=== PATIENT | female | born 1980 | race Caucasian/White ===

== ENCOUNTER → 2017-03-03 | Outpatient (CLI) | payer OTHER ==
[~2017-03-03] MED LIST: CLOP1TAB15 PO; DIGE1CAP7 PO; MULT-506 PO; OMEG10007 PO
[2017-03-03 12:21] LABS: BASO % 0.6 %; BASO ABS # 0.04 K/uL (0-0.2); COMPLETE YES; EOS % 0.9 %; HEMATOCRIT 40.1 % (37-47); IG% 0.1 %; LYMPH % 25.1 %; MEAN CELL VOLUME 91.1 fL (80-100); MEAN CORPUSCULAR HEMOGLOBIN 29.8 pg (25-34); MEAN CORPUSCULAR HGB CONC 32.7 g/dl (32-36); MEAN PLATELET VOLUME 10.2 fL (7.4-10.4); MONO % 6.4 %; NEUT % 66.9 %; PLATELET COUNT 303 K/uL (130-400); WHITE BLOOD COUNT 6.77 K/uL (4.8-10.8)
[2017-03-03 12:46] LABS: CHOLESTEROL/HDL RATIO 2.9
[2017-03-03 14:13] LABS: GLUCOSE,2HR PP 98 mg/dl (70-140)
[2017-03-03 15:12] LABS: GTGD 75 Grams
[2017-03-04 12:19] LABS: INSULIN FASTING 5.2; INSULIN SPEC 2 38.1
== END | disposition home or self-care (01) ==
LOC: C.LAB 08:59
DX: E16.2 Hypoglycemia, unspecified (principal); Z13.89 Encounter for screening for other disorder

== ENCOUNTER 2019-07-12 11:08 | Inpatient (IN) ==
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
[2019-07-12] MEDS ORDERED: HYDROmorphone INJ 0.5 MG/0.5 ML SYR IV PRN (12:28)
[2019-07-12] MEDS ORDERED: PROMETHAZINE HCL 12.5 MG in SODIUM CHLORIDE 0.9% 50 ML IV PRN (12:28)
[2019-07-12] MEDS ORDERED: IBUPROFEN 600 MG TAB PO PRN (12:28)
[2019-07-12] MEDS ORDERED: PROMETHAZINE HCL 25 MG in SODIUM CHLORIDE 0.9% 50 ML IV PRN (12:28)
[2019-07-12] MEDS ORDERED: ACETAMINOPHEN 325 MG TAB PO PRN (12:28)
[2019-07-12] MEDS ORDERED: ONDANSETRON INJ 2 MG/ML 2 ML VIAL IV PRN (12:28)
[2019-07-12 12:34] LABS: Basophils # (auto) 0.07 K/uL (0-0.2); Basophils % (auto) 0.9 %; Eosinophils # (auto) 0.08 K/uL (0-0.5); Hematocrit (blood only) 38.2 % (37-47); Immature Granulocytes # (auto) 0.02 K/uL (0.00-0.02); Immature Granulocytes % (auto) 0.3 %; Lymphocytes # (auto) 1.81 K/uL (1.2-3.4); Lymphocytes % (auto) 23.6 %; Mean Platelet Volume 9.5 fL (7.4-10.4); Monocytes # (auto) 0.52 K/uL (0.11-0.59); Monocytes % (auto) 6.8 %; Neutrophils # (auto) 5.18 K/uL (1.4-6.5); Neutrophils % (auto) 67.4 %; Platelet Count 405 K/uL (130-400); RDW Coefficient of Variation 12.6 % (11.5-14.5); RDW Standard Deviation 42.1 fL (36.4-46.3); White Blood Count 7.68 K/uL (4.8-10.8)
[2019-07-12 12:56] LABS: Albumin Level 3.9 gm/dl (3.4-5.0); BUN Creatinine Ratio 15.9 (10-20); C Reactive Protein 1.49 mg/dl (0-0.29); Calcium 9.4 mg/dl (8.5-10.1); Creatinine Clr Calc Pharmacy 90.1 ml/min; Est GFR (African American) 89.2; Potassium 3.9 mmol/L (3.5-5.1)
[2019-07-12 12:59] LABS: Albumin Globulin Ratio 0.8 (0.9-2); Bilirubin,Total 0.2 mg/dl (0.2-1); Globulin 4.7 gm/dl (2.5-4.0); Total Protein 8.6 gm/dl (6.4-8.2)
[2019-07-12] MEDS ORDERED: IOVERSOL 100ml IV PRN (13:14)
[2019-07-12] MEDS ORDERED: CLINDAMYCIN 600 MG in DEXTROSE 5% 50 ML IV ONE (13:30)
[2019-07-12] MEDS ORDERED: CIPROFLOXACIN / D5W 400 MG/200 ML BAG IV ONE (13:30)
--- NOTE | 2019-07-12 13:47 | CT Scan Report ---
CT SCAN OF THE PELVIS WITH IV CONTRAST CLINICAL HISTORY: Right groin abscess. COMPARISON STUDY: Pelvic CT dated 03/29/2013. TECHNIQUE: CT scan of the pelvis is performed from the pelvic inlet to the proximal femora following the IV administration of 93 cc of Optiray 320. Images are reviewed in the axial, sagittal, and leigh l planes. IV contrast was administered without complication. A dose lowering technique was utilized a dhering to the principles of ALARA. CT DOSE: 639.63 mGy.cm FINDINGS: The bladder, uterus, and adnexa are normal as imaged. There are bilateral ovarian follicles. No free fluid is seen in the cul-de-sac. A prominent right external iliac chain node seen on image #154 measu res 11 mm in short axis. This is likely on a reactive basis. The visualized loops of small bowel and colon are normal in caliber. A normal appendix is identified. The iliac vessels are patent. There is subcutaneous soft tissue infiltration and trace fluid identified in the medial right upper t high superficial to the gracilis muscle. A tiny focus of subcutaneous gas is seen on image #270. The appearance is typical for cellulitis. No organized fluid collection is seen to indicate abscess. The bony pelvis is intact. No lytic or blastic lesion is seen. Mild degenerative sclerosis is noted i n the sacroiliac joints. The regional musculature is normal and symmetric. IMPRESSION: 1. There is infiltration and inflammatory stranding identified within the subcutaneous soft tissues i n the medial right upper thigh superficial to the gracilis muscle. The appearance is typical for cell ulitis. 2. No organized/drainable fluid collection is identified. 3. Pelvic viscera is normal as imaged. ACT 112: Negative or not required by law. Electronically signed by: Aj Neumann M.D. 07/12/2019 1:46 PM
[2019-07-12] MEDS ORDERED: SODIUM CHLORIDE 0.9% 1000ML 1,000 ML IV SCH (14:00)
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
--- NOTE | 2019-07-12 16:55 | Emergency Department Note ---
History of Present Illness General Chief complaint: Referred by Doctor Stated complaint: REFERRED BY DOC Source: patient Mode of arrival: ambulatory Limitations: no limitations History of Present Illness Provider Complaint: + abscess/boil and + lesion Onset (ago): 1 week(s) Tetanus up to date: yes Location: + RLE (groin) Severity: moderate Maximum Pain Intensity: 5 Current Pain Intensity: 5 Quality: + aching, + sharp and + constant Pain Consistency: + constant Relieved By: + immobilization Exacerbated By: + palpation and + movement Associated symptoms: + chills, + malaise and + myalgias Treatments prior to arrival: + antibiotic and + other (I&D) HPI narrative: This 38-year-old female patient presents emergency department today, ambulatory, as a referral from her PCP complaining of an abscess in the right groin. The patient states 9 days ago, she was getting into an ambulance when she bumped her right groin on the seatbelt. This caused what she believed to be a hematoma with some ecchymosis and redness initially. By Thursday, she noticed increased redness and induration in the area. She was then seen here in the ED and started on Keflex. She noted ongoing fevers, chills, myalgias, and was seen as an outpatient by her PCP on . At this time, she was started on IV Rocephin through [facility] as an outpatient. The patient states she was also prescribed Bactrim, which she had not allergic reaction to. On the , she returned back to the emergency department due to increased redness, pain, and abscess. The lesion was incised and drained and cultured at that time. She indicates that the swelling was extending to the right labia as well as up into the groin. She was switched from the Keflex to Cipro and clindamycin. She has noted improvement in the fevers, redness, but worsening induration and occasional pain. She followed up with her PCP again today and the packing was removed. She was referred back to the emergency department for general surgery evaluation due to the ongoing induration and symptoms. The patient states there has been no further purulent discharge. She denies any urinary symptoms including hematuria, pyuria, dysuria, urinary frequency, urinary hesitancy. She denies any abnormal vaginal discharge or bleeding. There is no abdominal pain, leg pain, weakness, numbness, or tingling. Home Medications Home Medications Medication Instructions Recorded Confirmed Type clopidogrel [Plavix] 75 mg PO QAM 04/15/18 07/12/19 History digestive enzymes 1 tab PO DAILY PRN 04/15/18 07/12/19 History ketorolac 15 mg PO DIRECTED PRN 04/15/18 07/12/19 History multivitamin 1 tab PO QAM 04/15/18 07/12/19 History omega 5-gwu-[id number]-fish oil [Fish Oil] 1,000 mg PO DAILY 04/15/18 07/12/19 History aspirin 325 mg PO UD PRN 09/16/18 07/12/19 History ibuprofen 200 mg PO Q6H PRN 09/16/18 07/12/19 History norethindrone (contraceptive) 0.35 mg PO DAILY 07/05/19 07/12/19 History [Alice] ciprofloxacin HCl [Cipro] 500 mg PO Q12H #20 tab 07/10/19 07/12/19 Rx clindamycin HCl 300 mg PO Q6H 10 Days #40 cap 07/10/19 07/12/19 Rx Allergies Allergy/AdvReac Type Severity Reaction Status Date / Time Penicillins Allergy Severe SHORTNESS Verified 07/12/19 13:30 OF BREATH Sulfa (Sulfonamide Allergy Severe ANAPHYLACTIC Verified 07/12/19 13:30 Antibiotics) REACTION morphine Allergy Intermediate RASH, PT Verified 07/12/19 13:30 HAS TAKEN DILAUDID IN PAST WITH NO RXN sulfamethoxazole Allergy Rash Unverified 07/12/19 13:30 [From Bactrim] trimethoprim [From Bactrim] Allergy Rash Unverified 07/12/19 13:30 hydroxychloroquine AdvReac Severe CHANGE IN Verified 07/12/19 13:30 [From Plaquenil] MENTAL STATUS, NEURO COMPLICATIONS DETERGENTS Allergy Unknown TIDE Uncoded 07/12/19 13:30 Past Med/Surg History Medical History Cellulitis (Acute) Costochondritis (Acute) Factor 5 Leiden mutation, heterozygous (Chronic) History of multiple miscarriages Lupus (Chronic) Ovarian cancer Family History (Updated 07/12/19 @ 15:18 by Justine Guerra DO) Other No pertinent family history Stroke Social History Preferred Language: Salvadorean Communication Ability: Effective 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: No Beliefs That Will Affect Care: None marital status: Current Living Situation: Family Current Living Situation Comment: family lives with her, children Other Information That Helps Us Care for You: No Feels Safe at Home: Yes Safety Concerns: Feels Safe At This Time Smoking Status: Never smoker Do You Dip or Chew Tobacco: No ; Second Hand Exposure: No ; Tobacco Cessation Education Requested by Patient: No Hx Alcohol Use: No Hx Substance Use: No Review of Systems A total of 10 systems reviewed and were otherwise negative Physical Exam Vital Signs: Vital Signs - 24 hr 07/12/19 11:11 Temperature 36.6 C Temperature Source Oral Pulse Rate 93 H Respiratory Rate 18 Respiratory Effort / Characteristics Non-Labored Sponta neous Respiratory Depth Normal Blood Pressure 127/86 Blood Pressure Jacqui n 99 Blood Pressure Pos ition Sitting Pulse Oximetry 96 Oxygen Delivery Me thod Room Air Sepsis Recent Feve r Within 48 Hours Yes Sepsis Action Take n by Nursing No Action Required Physical Exam: VITALS: Vitals are noted on the nurse's note and reviewed by myself. Vital signs stable. GENERAL: This is a 38-year-old white female, in no acute distress, nondiaphoretic, well-developed well-nourished. SKIN: Indurated area in the right inguinal crease which extends toward the genitals. There is skin sloughing, but no significant surrounding erythema. No fluctuance. Significant tenderness to palpation of the area. The skin was without rashes, erythema, edema, or bruising. There is no tenting of the skin. Capillary refill less than 2 seconds. HEAD: Normocephalic atraumatic. NECK: Supple without nuchal rigidity. No lymphadenopathy. HEART: Regular rate and rhythm without murmurs gallops or rubs. LUNGS: Clear to auscultation bilaterally without wheezes, rales or rhonchi. No dullness to percussion. No retractions or accessory muscle use. ABDOMEN: Positive bowel sounds x 4. Normal tympanic percussion. Soft, nontender, without masses or organomegaly. Cloud sign negative. No guarding or rebound tenderness. MUSCULOSKELETAL: No muscle atrophy, erythema, or edema noted. Full range of motion without joint tenderness in all extremities. No tenderness to palpation. Normal gait. Strength 5/5 throughout. NEURO: Patient was alert and oriented to person place and time. No focal neurological deficits. Course Course The patient was seen and evaluated as above. I consulted with Dr. Scanlon, general surgeon on-call, immediately after evaluating the patient. IV access obtained, labs drawn. Dr. Scanlon did see and evaluate the patient. He did recommend CT imaging and admission with the likely need for surgical intervention. He recommends admission to the medicine service due to the patient's comorbidities. I discussed the case with the residential case manager. I consulted with Dr. Guerra, [facility] hospitalist on-call. She indicates that this should be a surgical admission with hospitalist consult. I again consulted with Dr. Scanlon and advised him of hospitalist recommendation. Neha nolasco agreed to admit the patient with medicine consult. Imaging performed and reviewed by myself and radiologist as above. Labs reviewed by myself. I discussed the findings with the patient at bedside. She was agreeable to admission at this time. I discussed the case with the ED pharmacist who reviewed micro reports and feels that the patient should be on appropriate antibiotics. Pt. will be admitted to the surgery service. Please see inpatient provider's documentation regarding ongoing management and care of this patient. Administered Medications Sodium Chloride (Nss 1000ml) 1,000 mls @ 50 mls/hr IV .Q20H SMOOTH Stop: 08/11/19 13:59 Last Admin: 07/12/19 14:09 Dose: 50 mls/hr Documented by: [id number] Ibuprofen (Motrin) 600 mg PO Q6H PRN PRN Reason: Pain Stop: 08/11/19 12:27 Last Admin: 07/12/19 14:22 Dose: 600 mg Documented by: [id number] Ioversol (Optiray 320 100ml) 93 ml IV ONCE PRN PRN Reason: Interaction Checking Stop: 07/16/19 13:13 Last Admin: 07/12/19 13:15 Dose: 93 ml Documented by: [id number] Miscellaneous (Order Awaiting Action) 1 ea N/A QS SMOOTH Stop: 08/11/19 15:59 Last Admin: 07/12/19 16:09 Dose: Not Given Documented by: [id number] Discontinued Medications Ciprofloxacin (Cipro) 400 mg in 200 mls @ 100 mls/hr IV ONE ONE Stop: 07/12/19 15:29 Last Infusion: 07/12/19 16:20 Dose: 0 mls/hr Documented by: [id number] Admin: 07/12/19 14:18 Dose: 100 mls/hr Documented by: [id number] Clindamycin Phosphate 600 mg/ (Dextrose) 54 mls @ 100 mls/hr IV ONE ONE Stop: 07/12/19 14:02 Last Infusion: 07/12/19 14:17 Dose: 0 mls/hr Documented by: [id number] Admin: 07/12/19 13:44 Dose: 100 mls/hr Documented by: [id number] Medical Decision Making Differential Diagnosis + abscess of skin or subcutaneous tissue, + viral exanthem, + dermatophytosis, + urticaria, + herpes zoster, + allergic reaction to drug, + cellulitis, + eczema, + insect bites, + impetigo, + contact dermatitis, + cellulitis, + necrotizing fasciitis, + foreign body, + dermatitis and + drug eruption Home Medications Current Medication List: was personally reviewed by me Laboratory Data Attestation: I reviewed the patient's lab results. No leukocytosis, anemia, thrombocytopenia. Renal, hepatic function, and electrolytes without significant abnormality. Inflammatory markers elevated. Result diagrams: 07/12/19 12:11 07/12/19 12:11 Lab Results 07/12/19 07/12/19 07/12/19 Range/Units 12:11 12:11 12:11 WBC 7.68 (4.8-10.8) K/uL RBC 4.20 (4.2-5.4) M/uL Hgb 13.0 (12.0-16.0) g/dL Hct 38.2 (37-47) % MCV 91.0 (80-100) fL MCH 31.0 (25-34) pg MCHC 34.0 (32-36) g/dL RDW Std Deviation 42.1 (36.4-46.3) fL RDW Coeff of Richelle 12.6 (11.5-14.5) % Plt Count 405 H (130-400) K/uL MPV 9.5 (7.4-10.4) fL Immature Gran % (Auto) 0.3 % Neut % (Auto) 67.4 % Lymph % (Auto) 23.6 % Douglas % (Auto) 6.8 % Eos % (Auto) 1.0 % Baso % (Auto) 0.9 % Immature Gran # (Auto) 0.02 (0.00-0.02) K/uL Neut # (Auto) 5.18 (1.4-6.5) K/uL Lymph # (Auto) 1.81 (1.2-3.4) K/uL Douglas # (Auto) 0.52 (0.11-0.59) K/uL Eos # (Auto) 0.08 (0-0.5) K/uL Baso # (Auto) 0.07 (0-0.2) K/uL ESR 46 H (0-21) mm/hr Sodium 137 (136-145) mmol/L Potassium 3.9 (3.5-5.1) mmol/L Chloride 105 (98-107) mmol/L Carbon Dioxide 28 (21-32) mmol/L Anion Gap 5.0 (3-11) BUN 15 (7-18) mg/dl Creatinine 0.94 (0.6-1.2) mg/dl Est Cr Clr Drug Dosing 90.1 ml/min Est GFR ( Amer) 89.2 Est GFR (Non-Af Amer) 77.0 BUN/Creatinine Ratio 15.9 (10-20) Glucose 91 (70-99) mg/dl Lactate (0.4-2.0) mmol/L Calcium 9.4 (8.5-10.1) mg/dl Total Bilirubin 0.2 (0.2-1) mg/dl AST 10 L (15-37) U/L ALT 13 (12-78) U/L Alkaline Phosphatase 44 L (45-117) U/L C-Reactive Protein 1.49 H (0-0.29) mg/dl Total Protein 8.6 H (6.4-8.2) gm/dl Albumin 3.9 (3.4-5.0) gm/dl Globulin 4.7 H (2.5-4.0) gm/dl Albumin/Globulin Ratio 0.8 L (0.9-2) 07/12/19 Range/Units 12:11 WBC (4.8-10.8) K/uL RBC (4.2-5.4) M/uL Hgb (12.0-16.0) g/dL Hct (37-47) % MCV (80-100) fL MCH (25-34) pg MCHC (32-36) g/dL RDW Std Deviation (36.4-46.3) fL RDW Coeff of Richelle (11.5-14.5) % Plt Count (130-400) K/uL MPV (7.4-10.4) fL Immature Gran % (Auto) % Neut % (Auto) % Lymph % (Auto) % Douglas % (Auto) % Eos % (Auto) % Baso % (Auto) % Immature Gran # (Auto) (0.00-0.02) K/uL Neut # (Auto) (1.4-6.5) K/uL Lymph # (Auto) (1.2-3.4) K/uL Douglas # (Auto) (0.11-0.59) K/uL Eos # (Auto) (0-0.5) K/uL Baso # (Auto) (0-0.2) K/uL ESR (0-21) mm/hr Sodium (136-145) mmol/L Potassium (3.5-5.1) mmol/L Chloride (98-107) mmol/L Carbon Dioxide (21-32) mmol/L Anion Gap (3-11) BUN (7-18) mg/dl Creatinine (0.6-1.2) mg/dl Est Cr Clr Drug Dosing ml/min Est GFR ( Amer) Est GFR (Non-Af Amer) BUN/Creatinine Ratio (10-20) Glucose (70-99) mg/dl Lactate 0.8 (0.4-2.0) mmol/L Calcium (8.5-10.1) mg/dl Total Bilirubin (0.2-1) mg/dl AST (15-37) U/L ALT (12-78) U/L Alkaline Phosphatase (45-117) U/L C-Reactive Protein (0-0.29) mg/dl Total Protein (6.4-8.2) gm/dl Albumin (3.4-5.0) gm/dl Globulin (2.5-4.0) gm/dl Albumin/Globulin Ratio (0.9-2) Imaging Data Radiologist's Impression: CT SCAN OF THE PELVIS WITH IV CONTRAST CLINICAL HISTORY: Right groin abscess. COMPARISON STUDY: Pelvic CT dated 03/29/2013. TECHNIQUE: CT scan of the pelvis is performed from the pelvic inlet to the proximal femora following the IV administration of 93 cc of Optiray 320. Images are reviewed in the axial, sagittal, and coronal planes. IV contrast was administered without complication. A dose lowering technique was utilized adhering to the principles of ALARA. CT DOSE: 639.63 mGy.cm FINDINGS: The bladder, uterus, and adnexa are normal as imaged. There are bilateral ovarian follicles. No free fluid is seen in the cul-de-sac. A prominent right external iliac chain node seen on image #154 measures 11 mm in short axis. This is likely on a reactive basis. The visualized loops of small bowel and colon are normal in caliber. A normal appendix is identified. The iliac vessels are patent. There is subcutaneous soft tissue infiltration and trace fluid identified in the medial right upper thigh superficial to the gracilis muscle. A tiny focus of subcutaneous gas is seen on image #270. The appearance is typical for cellulitis. No organized fluid collection is seen to indicate abscess. The bony pelvis is intact. No lytic or blastic lesion is seen. Mild degenerative sclerosis is noted in the sacroiliac joints. The regional musculature is normal and symmetric. IMPRESSION: 1. There is infiltration and inflammatory stranding identified within the subcutaneous soft tissues in the medial right upper thigh superficial to the gracilis muscle. The appearance is typical for cellulitis. 2. No organized/drainable fluid collection is identified. 3. Pelvic viscera is normal as imaged. ACT 112: Negative or not required by law. Electronically signed by: Aj Neumann M.D. 07/12/2019 1:46 PM Blood Pressure Blood Pressure Findings: Normal blood pressure MDM Narrative This 38-year-old female patient presents emergency department today for evaluation of right inguinal abscess. This occurred after injury. The abscess has been I&D and the patient has been on 5 different antibiotics over the past week. She did start to see some improvement since initiating Clindamycin and Cipro. She was sent to the ED for general surgery consult. This was placed and completed in the ED. The surgeon did recommend admission for monitoring and indicated that the patient will likely need to go to the operating room to have the area cleaned out, as he is highly suspicious for necrotic tissue and potential microabscesses in the area causing the induration and pain. The patient is initially hesitant for admission or surgery. She did ultimately agree to admission, but is refusing surgery at this time. She would like to consult with ID and continue the current antibiotics for possible ongoing improvement. The patient was admitted to the general surgery service. Please see inpatient team dictations regarding ongoing management, care, and final disposition of this patient. The chart was completed utilizing [employer] Speech voice recognition software. Grammatical errors, random word insertions, pronoun errors, and incomplete sentences are an occasional consequence of this system due to software limitat ions, ambient noise, and hardware issues. Any formal questions or concerns about the content, text, or information contained within the body of this dictation should be directly addressed to the provider for clarification. Impression & Plan Abscess or cellulitis of groin Discharge Plan Visit Data *Final* Discharge Date/Time: 07/12/19 14:31 Chief Complaint: Referred by Doctor Stated Complaint: REFERRED BY DOC ED Provider: Mark Prescott ED Midlevel Provider: Richelle Mooney Discharge Problem: Abscess or cellulitis of groin Patient Disposition: Admitted As Inpatient Discharge Instructions Interventions: ED Discharge Assessment Last Done: 07/12/19 14:31
[2019-07-12] MEDS: LACTOBACILLUS ACIDOPHILUS (FLORANEX) TAB PO SCH ×3 (17:40→21:04)
[2019-07-12] MEDS: CLINDAMYCIN 600 MG in DEXTROSE 5% 50 ML IV SCH (21:04)
[2019-07-12] MEDS: CIPROFLOXACIN / D5W 400 MG/200 ML BAG IV SCH (23:28)
[2019-07-13] MEDS: CLINDAMYCIN 600 MG in DEXTROSE 5% 50 ML IV SCH ×3 (05:55→21:41)
--- NOTE | 2019-07-13 06:24 | Surgery Progress Note ---
Date of Service July 13, 2019 Assessment & Plan (1) Cellulitis: Continue IV antibiotics Will adjust as per infectious disease and her sensitivities I think she should take at least a week off work Limit her activities Possible discharge in 1 to 2 days We will need to decide on p.o. versus IV antibiotics Subjective Patient is awake and alert she is afebrileHer vital signs are stable Physical Exam Constitutional: well developed and well nourished; no acute distress Respiratory: normal respiratory effort; no respiratory distress Cardiovascular: Rate/Rhythm: regular rhythm Skin: Erythema and induration Right mid proximal thigh area PG Care Time/CCT Total # of Minutes Spent Total Time Spent with Patient: Total time spent is greater than 50% in coordination of care (as documented) at patient's floor/unit and/or counseling patient: Coding Level of Care Code 59473 Subseq Hosp Care Lvl 3 Diagnoses Cellulitis L03.818 Site of cellulitis: other site (1) Cellulitis Site of cellulitis: other site Qualified Code(s): L03.818 - Cellulitis of other sites
[2019-07-13] MEDS: LACTOBACILLUS ACIDOPHILUS (FLORANEX) TAB PO SCH ×5 (08:35→20:16)
[2019-07-13] MEDS ORDERED: CLOPIDOGREL BISULFATE 75 MG TAB PO SCH (09:00)
--- NOTE | 2019-07-13 09:36 | Hospitalist Progress Note ---
Date of Service July 13, 2019 Assessment & Plan (1) Abscess or cellulitis of groin: * Primary Dr. Scanlon. Initially admitted for likely I&D, although CT without evidence of drainable abscess at this time. 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 Stable. Previously was on Plaquenil and developed issues -- currently on ASA prn, Plavix 75mg daily * Resumed this evening as patient not going to OR (3) Factor 5 Leiden mutation, heterozygous: * Aspirin/plavix on hold for possible OR -- resumed as patient no longer needing to go to OR (4) DVT prophylaxis: * As per primary -- ASA, plavix resumed Dispo: likely discharge tomorrow with Clinda PO TID x 3 weeks Admission and Anticipated Discharge Date Admission Date: July 12, 2019 Supervising Physician Co-Signing Physician Notes Attending Attestation - Chart reviewed, care plan d/w JOSE Blunt. I agree w/ the greenwood components of her consult documentation. Darell Gusman MD Subjective Patient evaluated at bedside with daughter present. Feels much better after receiving IV abx. Had not seen ID yet this morning, but plan for continuing IV clinda/cipro for now. Discussed complicated course over the past week while dealing with this infection/abscess and multiple antibiotics including keflex, IV Rocephin multiple times at the office, batrim (with resulting reaction) and I&D for copious purulent material. Had worsening pain/fever/chills and came in for possible OR I&D with Dr. Scanlon. If she is to continue IV abx, discussed obtaining US guided peripheral IV. Also, questions regarding topical dressings and/or utilizing friend's hyperbaric oxygen chamber for quicker wound healing. Discussed continuing IV antibiotics overnight upon revisiting room this evening. Rec from ID to continue Cipro TID x 3 weeks. Possible discharge in AM. Denies any chest pain, shortness of breath, abdominal pain, n/v. Review of Systems Review of Systems: All systems reviewed & are unremarkable except as noted in HPI & below Physical Exam Constitutional: WD/WN, vitals as above no acute distress Respiratory: normal respiratory effort, lungs clear to auscultation Cardiovascular: RRR, no murmur, no edema Gastrointestinal (Abdomen): normal bowel sounds, soft, nontender, no hepatosplenomegaly Skin: Approx 4-5cm area of induration R groin, inguinal crease. Without erythema. Without expressible drainage. Minimally tender to palpation. Psychiatric: A+Ox3, euthymic affect Results & Data ([facility]) Vital Signs (Past 12 Hours) Vital Signs Temp Pulse Resp BP Pulse Ox 07/13/19 07:30 36.9 C 93 H 16 120/87 97 PG Care Time/CCT Total # of Minutes Spent Total Time Spent with Patient: Total time spent is greater than 50% in coordination of care (as documented) at patient's floor/unit and/or counseling patient: Coding Level of Care Code 83243 Subseq Hosp Care Lvl 1 Diagnoses Abscess or cellulitis of groin Lupus M32.9 Factor 5 Leiden mutation, heterozygous D68.51 DVT prophylaxis Z29.9
--- NOTE | 2019-07-13 11:20 | Infectious Disease Consult ---
Date of Consultation July 13, 2019 Assessment & Plan (1) Cellulitis: can continue IV abx for now, would suggest continued po clinda 300mg po tid with food x 3 weeks. warm compress, local wound care. can stop cipro at d/c. ok for d/c from ID standpoint when otherwise stable. continue probiotic. avoid pcn due to allergy. History of Present Illness Attending Physician: Jamar Scanlon MD, FACS pt admitted with worsening right groin/upper thigh wound. had been to ER on 07/05 and 07/09, was on clinda and cipro emperically. worsened on 07/09 - pain, swelling, had bedside I&D and culture grew prevotella, no sensitivities done. continue on abx and states significant improvement after drainage. still weeping at home but improved. pain and swelling better. denies f/c. came to ER yesterday, had ct showing edema, no abscess, had surgery eval, was placed on IV clinda and cipro and was admitted for observation and tentative OR. per patient no OR planned at this time due to improvement. no f/c. wbc 7, creat 0.6, blood cultures negative. no abd pain, no n/v/d. no cp, sob, cough. no pain in leg. taking probiotic at home. asking to go home. Allergies Allergy/AdvReac Type Severity Reaction Status Date / Time Penicillins Allergy Severe SHORTNESS Verified 07/12/19 13:30 OF BREATH Sulfa (Sulfonamide Allergy Severe ANAPHYLACTIC Verified 07/12/19 13:30 Antibiotics) REACTION morphine Allergy Intermediate RASH, PT Verified 07/12/19 13:30 HAS TAKEN DILAUDID IN PAST WITH NO RXN sulfamethoxazole Allergy Rash Unverified 07/12/19 13:30 [From Bactrim] trimethoprim [From Bactrim] Allergy Rash Unverified 07/12/19 13:30 hydroxychloroquine AdvReac Severe CHANGE IN Verified 07/12/19 13:30 [From Plaquenil] MENTAL STATUS, NEURO COMPLICATIONS DETERGENTS Allergy Unknown TIDE Uncoded 07/12/19 13:30 Home Medications Home Medications Medication Instructions Recorded Confirmed Type clopidogrel [Plavix] 75 mg PO QAM 04/15/18 07/12/19 History digestive enzymes 1 tab PO DAILY PRN 04/15/18 07/12/19 History ketorolac 15 mg PO DIRECTED PRN 04/15/18 07/12/19 History multivitamin 1 tab PO QAM 04/15/18 07/12/19 History omega 4-zcp-zgc-fish oil [Fish Oil] 1,000 mg PO DAILY 04/15/18 07/12/19 History aspirin 325 mg PO UD PRN 09/16/18 07/12/19 History ibuprofen 200 mg PO Q6H PRN 09/16/18 07/12/19 History norethindrone (contraceptive) 0.35 mg PO DAILY 07/05/19 07/12/19 History [Alice] ciprofloxacin HCl [Cipro] 500 mg PO Q12H #20 tab 07/10/19 07/12/19 Rx clindamycin HCl 300 mg PO Q6H 10 Days #40 cap 07/10/19 07/12/19 Rx Patient History Medical History Cellulitis (Acute) Costochondritis (Acute) Factor 5 Leiden mutation, heterozygous (Chronic) History of multiple miscarriages Lupus (Chronic) Ovarian cancer Family History Other No pertinent family history Stroke Social History Preferred Language: Estonian Communication Ability: Effective Tmr Teacher Required: No Beliefs That Will Affect Care: None marital status: Current Living Situation: Family Current Living Situation Comment: family lives with her, children Other Information That Helps Us Care for You: No Feels Safe at Home: Yes Safety Concerns: Feels Safe At This Time Smoking Status: Never smoker Do You Dip or Chew Tobacco: No ; Second Hand Exposure: No ; Tobacco Cessation Education Requested by Patient: No Hx Alcohol Use: No Hx Substance Use: No Review of Systems Review of Systems: All systems reviewed & are unremarkable except as noted in HPI & below Physical Exam Constitutional: WD/WN, vitals as above Eyes: PERRL, conjunctivae normal, anicteric sclerae ENMT: external ear and nose normal, oropharynx normal Neck: normal visual inspection Respiratory: normal respiratory effort, lungs clear to auscultation Cardiovascular: RRR, no murmur, no edema Gastrointestinal (Abdomen): normal bowel sounds, soft, nontender, no hepatosplenomegaly Musculoskeletal: no cyanosis or clubbing, extremities motor strength 5/5 Skin: no rashes, warm and dry + wound (induration, no drainage, no warmth min erythema, non tender) Psychiatric: A+Ox3, euthymic affect Results & Data ([facility]) Vital Signs (Past 12 Hours) Vital Signs Temp Pulse Resp BP Pulse Ox 07/13/19 07:30 36.9 C 93 H 16 120/87 97 PG Care Time/CCT Total # of Minutes Spent Total Time Spent with Patient: Total time spent is greater than 50% in coordination of care (as documented) at patient's floor/unit and/or counseling patient: Coding Level of Care Code 11506 Inpt Consult Level 4 Diagnoses Cellulitis L03.818 Site of cellulitis: other site (1) Cellulitis Site of cellulitis: other site Qualified Code(s): L03.818 - Cellulitis of other sites
[2019-07-13] MEDS: CIPROFLOXACIN / D5W 400 MG/200 ML BAG IV SCH (11:34)
[2019-07-13] MEDS ORDERED: ASPIRIN 325 MG ECTAB PO PRN (17:34)
[2019-07-13] MEDS ORDERED: CLOPIDOGREL BISULFATE 75 MG TAB PO ONE (17:36)
[2019-07-14] MEDS: CIPROFLOXACIN / D5W 400 MG/200 ML BAG IV SCH (00:06)
[2019-07-14] MEDS: CLINDAMYCIN 600 MG in DEXTROSE 5% 50 ML IV SCH (05:26)
[2019-07-14 05:41] LABS: Basophils # (auto) 0.05 K/uL (0-0.2); Basophils % (auto) 0.6 %; Eosinophils # (auto) 0.18 K/uL (0-0.5); Eosinophils % (auto) 2.1 %; Hematocrit (blood only) 35.2 % (37-47); Hemoglobin 12.1 g/dL (12.0-16.0); Immature Granulocytes # (auto) 0.04 K/uL (0.00-0.02); Immature Granulocytes % (auto) 0.5 %; Lymphocytes # (auto) 2.56 K/uL (1.2-3.4); Lymphocytes % (auto) 30.2 %; Mean Corpuscular Hgb Conc 34.4 g/dL (32-36); Mean Corpuscular Volume 90.3 fL (80-100); Monocytes # (auto) 0.67 K/uL (0.11-0.59); Monocytes % (auto) 7.9 %; Neutrophils # (auto) 4.98 K/uL (1.4-6.5); Neutrophils % (auto) 58.7 %; Platelet Count 389 K/uL (130-400); RDW Coefficient of Variation 12.6 % (11.5-14.5); RDW Standard Deviation 41.7 fL (36.4-46.3); White Blood Count 8.48 K/uL (4.8-10.8)
[2019-07-14] MEDS: LACTOBACILLUS ACIDOPHILUS (FLORANEX) TAB PO SCH (07:19)
--- NOTE | 2019-07-14 07:30 | Discharge Summary ---
Date of Service July 14, 2019 Admission HPI Per Admitting Provider see dictation Admission Exam Per Admitting Provider see dictation Discharge Data Allergies Allergy/AdvReac Type Severity Reaction Status Date / Time Penicillins Allergy Severe SHORTNESS Verified 07/12/19 13:30 OF BREATH Sulfa (Sulfonamide Allergy Severe ANAPHYLACTIC Verified 07/12/19 13:30 Antibiotics) REACTION morphine Allergy Intermediate RASH, PT Verified 07/12/19 13:30 HAS TAKEN DILAUDID IN PAST WITH NO RXN sulfamethoxazole Allergy Rash Unverified 07/12/19 13:30 [From Bactrim] trimethoprim [From Bactrim] Allergy Rash Unverified 07/12/19 13:30 hydroxychloroquine AdvReac Severe CHANGE IN Verified 07/12/19 13:30 [From Plaquenil] MENTAL STATUS, NEURO COMPLICATIONS DETERGENTS Allergy Unknown TIDE Uncoded 07/12/19 13:30 Consultations 07/12/19 11:36 Consult General Surgery Stat 07/12/19 12:21 Consult Hospitalist Stat 07/12/19 12:22 ED Decision to Admit Stat 07/12/19 12:27 Consult Hospitalist Routine Consult Infectious Diseases Routine Ordered Studies 07/12/19 12:00 CT pelvis w/IV con only Stat Discharge Plan Discharge Items Patient Disposition: Home - Self-Care Reason For Visit: SOFT TISSUE INFECTION Discharge Diagnosis: cellulitis Activity: As commented below Activity Comment: light activity for 1 week Lifting: No more than 25 pounds Bathing Comment: may shower Sexual Activity: When tolerated Exercise Comment: wait 2-3 weeks- depending on progress Driving/Machine Use: No limitations Non-emergency contact: Primary Care Provider and Surgeon Call non-emergency contact if: your pain is not controlled, your temperature is above 101 and your wound has increased drainage Follow-up/Referrals: Jamar Burns Jr, DO [Primary Care Provider] - Diet: Regular Addtl Attending Provider Instructions: SPECIAL CARE INSTRUCTIONS: * Cover incisions and change daily for comfort/drainage. * May use ibuprofen for pain as tolerated. Call your doctor if: * Temperature above 101 degrees * Pain not relieved by pain medicine ordered * There is increased drainage or redness from any incision * You have any unanswered questions or concerns [phone]. FOLLOW UP VISIT: If not already scheduled, please call the office for a follow-up visit. OFFICE PHONE NUMBER: Dr. Scanlon Office for next week- check up Pending Studies at Discharge: No Stand-Alone Forms: My [facility], Smoking Cessation Medications and DC Order Prescriptions: New clindamycin HCl 300 mg capsule 300 mg PO TID 7 Days Qty: 21 RF: 3 Continued aspirin 325 mg Tablet 325 mg PO UD PRN (Reason: Pain) RF: 0 ibuprofen 200 mg Tablet 200 mg PO Q6H PRN (Reason: Pain) RF: 0 multivitamin Tablet 1 tab PO QAM RF: 0 digestive enzymes Tablet 1 tab PO DAILY PRN (Reason: Indigestion) RF: 0 clopidogrel [Plavix] 75 mg Tablet 75 mg PO QAM RF: 0 ketorolac 10 mg Tablet 15 mg PO DIRECTED PRN (Reason: Migraine Headache) RF: 0 omega 6-uqr-pnj-fish oil [Fish Oil] 1,000 mg (120 mg-180 mg) Capsule 1,000 mg PO DAILY RF: 0 norethindrone (contraceptive) [Alice] 0.35 mg tablet 0.35 mg PO DAILY RF: 0 clindamycin HCl 300 mg capsule 300 mg PO Q6H 10 Days Qty: 40 RF: 0 ciprofloxacin HCl [Cipro] 500 mg tablet 500 mg PO Q12H Qty: 20 RF: 0 Discharge Orders: Discharge Order (Routine); Ordered 07/14/19 Ordered By: Jamar Scanlon Admission Data Admit Date/Time: 07/12/19 12:25 Attending Provider: Jamar Scanlon Admit Provider: Jamar Scanlon Primary Care Provider: Jamar Burns Jr Other Providers: Jamar Scanlon ; Justine Guerra Rick D ; Hahn, Lauren ; Carmen Choi ; Darell Gusman Robert R. ; Mark Leon ; Wade Lang ; Brian Flores ; Nay Sams ; Laura Jarquin ; Sandra Waddell ; Tyrell Hinton ; Moriah Velasquez ; Yang Salcedo ; Curtis Sherman ; Charmaine Issa ; Pablo Aguero ; Vanita Macdonald ; Jennifer Taylor ; Magnus Mascorro ; Darell Sanchez ; Anant Hayden ; Katie De Dios ; Oscar Bergeron ; Percy Jerome ; Sonia Moran ; Davon Huerta ; Ke Bailey ; Fredy Shi ; Saqib Frye ; Syeda Smith Supervising Physician Co-Signing Physician Notes see dictated d/c summary Coding Level of Care Code D/C Day Management >30 mins
[2019-07-14] MEDS ORDERED: CLOPIDOGREL BISULFATE 75 MG TAB PO SCH (09:00)
--- NOTE | 2019-07-14 10:13 | Discharge Summary (DS) ---
PRINCIPAL DIAGNOSIS: Cellulitis of the right proximal thigh. HISTORY OF PRESENT ILLNESS: The patient is a 38-year-old female who has been treated over the past 2 weeks with infection of the proximal right thigh requiring drainage on 07/09/2019. She was brought into the hospital and underwent CAT scan, which showed cellulitis with no overt collection and what appeared to be [id number] inflammation consistent with cellulitis. She was placed on IV antibiotics and Dr. Smith of infectious disease was asked to see her. We have decided to place her on oral clindamycin for 3 weeks and we will continue with nonoperative treatment. She has improved even over the last 48-72 hours. We will see her in the surgical clinic next week.
== END 2019-07-14 10:27 | disposition home or self-care (01) | DRG 603 ==
LOC: ED 11:08 → 3W 12:25

== ENCOUNTER 2024-04-07 22:02 | Observation (INO) ==
--- NOTE | 2024-04-07 22:32 | Emergency Department Note ---
Impression & Plan RUQ pain, Postoperative abdominal pain, Right arm weakness, Vertigo, Acute confusion ED Provider Note Name: JACKIE SERRA Age: 43 Sex: Female Arrives Via: Walk-In Informant: Patient, significant other ED Provider: Edward Avendano MD Chief Complaint: Abdominal pain and confusion Impression: As per impressions above Medical Decision Making: Very pleasant 43-year-old female arrives for evaluation of severe postoperative abdominal pain following a cholecystectomy earlier this morning. Associated with severe vertigo, anxiety, nausea and the feeling of heaviness in the right arm and leg. Notes right arm feels a bit weak. She is also having pain into her right shoulder blade as well as anterior shoulder. On arrival vitals are reassuring. She is breathing comfortably with clear lung sounds bilaterally. She has severe tenderness palpation of the right upper quadrant though also diffuse tenderness of the entire abdomen. Neurologically she is 5 out of 5 strength the right arm does seem slightly weaker than left. She furthermore is severely vertiginous. She had surgery this morning this is not a thrombolytic candidate. Patient does have a history of factor V Leiden and has been off her Plavix for the last [address] angiography of the head and neck was emergently done as a stroke alert. Fortunately these are negative thus there is no need for transfer for thrombectomy. Given she is not a TNKase candidate and does not have severe focal deficits I do not feel that neurologic consult immediately is necessary. Given the postoperative abdominal pain patient had a CT abdomen pelvis with IV contrast obtained. Fortunately findings are consistent with postoperative expected. Air tracking over the right lower ribs may account for some of the pain she is having. It may be causing some referred pain to the shoulder as well. Patient is not dyspneic she is not hypoxic nor tachycardic. She does not have any specific chest complaints other than the pain in her right lower chest/right upper quadrant as well as the right shoulder. I think these pains are more likely due to surgery rather than multiple PEs. Would hold off on CT angiography of the chest at this time given already receiving dye load and trialing some IV Toradol for discomfort. Patient is also noting almost the brain fog and feeling like she may be seeing things that are not there. I suspect much of this is secondary to anesthesia earlier today. That said this will need further monitoring for clearance prior to discharge. I do not suspect meningitis. Triage/Nursing Notes reviewed by Me External Chart Review by me: Reviewed operative report from this morning April 07, 2024 which there is no report of surgical complication or. Differential:Benign positional vertigo, dehydration, hypovolemia, anemia, tumor, infection, hypoglycemia, electrolyte abnormalities, cardiac sources, intracerebral event, toxicologic, neurologic, as well as other pathologies. Vital Signs: reviewed and remarkable for no significant abnormalities Interventions: Normal saline bolus 1 L IV, Ativan IV, Dilaudid IV x 2, Toradol IV Labs:ED labs Reviewed by me and remarkable for no significant abnormalities Imaging:CT of the head without contrast as per my informal interpretation reveals no intracranial hemorrhage or mass effect appreciated. Confirmed by radiologist. CT angiography of the head and neck as per radiology no acute concerning findings. CT of the abdomen pelvis as per my informal interpretation. There is subcutaneous air and small amount of air throughout the abdomen consistent with postoperative course. Trace free fluid without evidence of large fluid or bleeding appreciated. No bowel obstruction appreciated though will note mildly dilated bowel. Per radiologist this may represent ileus. EKG:As per my interpretation. Indication strokelike symptoms. Normal sinus rhythm 75 bpm no ectopy no ischemia. QTc of 433. Compared to EKG of December 11, 2022 there is no significant change. Cardiac/Tele Monitoring: Cardiac Monitoring: An Order was placed for continuous cardiac monitoring. The monitor shows a rate of 70 with a normal sinus rhythm. Consults:Discussed with Dr. Gupta who will evaluate patient for further management hospitalization. Plan: Disposition:Hospitalization. Condition: Good History of Present Illness: 43-year-old female arrives to the ER for evaluation of abdominal pain. Patient notes that she had a cholecystectomy this morning and was discharged to home this afternoon. Since getting home she states she has been feeling increasing severe abdominal pain. Radiates to the right shoulder. She also notes that she has been having severe vertiginous symptoms and feels like anytime she closes her eyes or vision starts spinning. This has been associated for the last several hours if not since the operative case with weakness and heaviness of the right arm and leg. States this is similar to previous TIA. Denies any passing out but states she is feeling very lightheaded. She did take meclizine earlier with mild improvement of the spinning. Patient notes that she feels like she is seeing things that should not be there and feels like she is hallucinating. Patient feels her abdomen is somewhat distended. Patient has a history of factor V Leiden is chronically on Plavix however had stopped the Plavix preoperatively for the last 3 days. Denies any headache. Past Medical History:See Below Home Medications:See Below Allergies:See Below Vitals:Blood Pressure: 110/67, Pulse 87, RR 20, T 37.4C, O2 97% on RA Physical Exam: GENERAL: Patient is anxious, unwell, pale appearing and in moderate distress. Diffusely weak having difficulty even sitting up straight. RESPIRATORY: No dyspnea. Clear to auscultation and equal bilaterally. CARDIOVASCULAR: Regular rate and rhythm.No murmur appreciated. GASTROINTESTINAL: Abdomen soft, non-tender, no peritonitis. BACK: No midline tenderness, no CVA tenderness EXTREMITIES: Normal motion all extremities, no cyanosis, no edema. Patient has cap refill bilateral hands with good distal pulses bilaterally. There is no bruising or swelling of the proximal or distal arms. NEUROLOGIC: Awake alert oriented. She does have some slow response with the right arm but 5 out of 5 strength. Similar in the right leg. SKIN: No rash, no jaundice, no diaphoresis. PSYCH: Appropriate GCS: 15 ED Course: Times/Reassessments: Multiple repeat evaluations of patient throughout the stay. Gradually improving anxiety and pain though still feeling quite foggy and uncomfortable. Agreeable to hospitalization Edward Avendano MD Past Med/Surg History Problem List (Updated 04/08/24 @ 00:49 by Edward Avendano MD) Acute confusion (Acute) Vertigo (Acute) Right arm weakness (Acute) Postoperative abdominal pain (Acute) Encounter for pre-operative examination Acute cholecystitis due to biliary calculus RUQ pain (Acute) Abdominal pain (Acute) Iron deficiency Fatty liver GERD (gastroesophageal reflux disease) History of systemic lupus erythematosus Tinnitus of right ear Factor 5 Leiden mutation, heterozygous (Chronic) Hemiplegic migraine Medical History (Updated 04/08/24 @ 00:49 by Edward Avendano MD) Iron deficiency anemia follows with Hematology History of DVT (deep vein thrombosis) LLE 6mos post (per PCP note) Fatty liver Rheumatoid arthritis Dental bridge present per pt is removable Cracked tooth back right wisdom tooth Factor 5 Leiden mutation, heterozygous on plavix Color blindness Hearing loss in right ear History of TIA (transient ischemic attack) 'multiple TIA-like events' per PCP. Per pt, 'last one was roughly 1 yr ago (2022)' Migraine Lupus SLE History of Raynaud's syndrome Costochondritis History of multiple miscarriages Surgical History (Updated 04/07/24 @ 10:17 by Kelly Betancourt, RN) Hx laparoscopic cholecystectomy (04/07/24) Robotic Assisted Laparoscopic Cholecystectomy(Not Applicable) - Mily Crooks DO History of dilatation and curettage Family History Grandfather Diabetes Heart disease Hypertension Grandmother Stroke Other Allergies Asthma No family history of adverse response to anesthesia No pertinent family history Denies family history of Ovarian cancer Prostate cancer Myocardial infarction Breast cancer Colorectal cancer Social History Smoking Status: Never smoker Second Hand Exposure: No; Do You Dip or Chew Tobacco: No; Hx Alcohol Use: No Hx Substance Use: No Preferred Language: Danish Communication Ability: Effective Visual Impairment: Partially Limited Hearing Ability: Normal Horse Race St[employer] Required: No Beliefs That Will Affect Care: None marital status: Current Living Situation: Family Current Living Situation Comment: family lives with her, children current occupational status: employed and student 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 How many Children do You have: 3 Feels Safe at Home: Yes Diet: gluten free and lactose free caffeine: No during the past year weight has: decreased > 10 lbs Dental Care, Regularly: Yes Physical Activity Frequency: Daily Seatbelt Use: always Sunscreen Use: Yes Assistive Devices: Glasses and Other Allergies Allergies Allergy/AdvReac Type Severity Reaction Status Date / Time Penicillins Allergy Severe SHORTNESS Verified 04/07/24 07:04 OF BREATH Sulfa (Sulfonamide Allergy Severe ANAPHYLACTIC Verified 04/07/24 07:04 Antibiotics) REACTION morphine Allergy Intermediate RASH, PT Verified 04/07/24 07:04 HAS TAKEN DILAUDID IN PAST WITH NO RXN sulfamethoxazole Allergy Mild Rash Verified 04/07/24 07:04 [From Bactrim] trimethoprim [From Bactrim] Allergy Mild Rash Verified 04/07/24 07:04 hydroxychloroquine AdvReac Severe CHANGE IN Verified 04/07/24 07:04 [From Plaquenil] MENTAL STATUS, NEURO COMPLICATIONS DETERGENTS Allergy Unknown TIDE Uncoded 04/07/24 07:04 Home Meds Home Medications Medication Instructions Recorded Confirmed Magnesium glycinate, zinc, Vitamin 2 tab PO DAILY 12/09/23 04/07/24 D Glutathione Inejction 1 dose INJ WK 03/28/24 04/07/24 Essential Fatty Acid 1 tab PO DAILY 04/04/24 04/07/24 clopidogrel 75 mg tablet (Plavix) 75 mg PO Q OTHER DAY 04/04/24 04/07/24 cyanocobalamin (vitamin B-12) 1,000 mcg subcut WK 04/07/24 04/07/24 1,000 mcg/mL injection solution ibuprofen 200 mg tablet 600 mg PO Q6H PRN Pain 04/07/24 04/07/24 ondansetron 4 mg disintegrating 4 mg PO Q6H PRN Nausea 04/07/24 04/07/24 tablet pantoprazole 40 mg granules 40 mg PO DAILY PRN Acid Reflux 04/07/24 04/07/24 delayed-release for susp in packet (Protonix) Previous Rx's Medication Instructions Recorded epinephrine 0.3 mg/0.3 mL 0.3 mg (0.3 mL) IM UD PRN allergic 12/09/23 injection, auto-injector (EpiPen reaction,severe #2 ea 2-Connor) metronidazole 500 mg tablet 500 mg PO BID 7 days #14 tabs 04/01/24 oxycodone 5 mg tablet 5 - 10 mg (1 - 2 x 5 mg) PO 04/07/24 [id number] PRN pain, for initial therapy, max 6 tabs per day #15 tabs Results & Data (ED) Vital Signs Vital Signs - 24 hr 04/07/24 22:09 04/07/24 23:27 04/07/24 23:36 Temperature 37.4 C Temperature Source Temporal Artery Scan Pulse Rate 87 83 110 H Pulse Rate from SpO2 Sensor 82 109 H Respiratory Rate 20 15 19 Blood Pressure 110/67 Blood Pressure Mean 81 Pulse Oximetry 97 100 100 Oxygen Delivery Method Room Air Sepsis Recent Fever Within 48 Hours No Sepsis New/Unexplained Change in Mental Status No Sepsis Action Taken by Nursing No Action Required 04/07/24 23:45 04/08/24 00:00 Temperature Temperature Source Pulse Rate 89 82 Pulse Rate from SpO2 Sensor 89 79 Respiratory Rate 19 17 Blood Pressure 107/80 106/71 Blood Pressure Mean 89 82 Pulse Oximetry 100 99 Oxygen Delivery Method Sepsis Recent Fever Within 48 Hours Sepsis New/Unexplained Change in Mental Status Sepsis Action Taken by Nursing Laboratory Data 04/07/24 22:33 04/07/24 22:33 Lab Results 04/07/24 Range/Units 22:33 WBC 10.45 (4.8-10.8) K/ul RBC 4.20 (4.20-5.40) M/uL Hgb 12.9 (12.0-16.0) g/dl Hct 38.2 (37.0-47.0) % MCV 91.0 (80.0-100.0) fL MCH 30.7 (25.0-34.0) pg MCHC 33.8 (32.0-36.0) g/dL RDW Std Deviation 40.6 (36.4-46.3) fL RDW Coeff of Richelle 12.3 (11.5-14.5) % Plt Count 311 (130-400) K/uL MPV 10.1 (9.4-12.4) fL Immature Gran % (Auto) 0.3 % Neut % (Auto) 83.5 % Lymph % (Auto) 10.2 % [place] % (Auto) 5.8 % Eos % (Auto) 0.0 % Baso % (Auto) 0.2 % Neut # (Auto) 8.72 H (1.40-6.50) K/uL Lymph # (Auto) 1.07 L (1.20-3.40) K/uL [place] # (Auto) 0.61 H (0.11-0.59) K/uL Eos # (Auto) 0.00 (0.00-0.50) K/uL Baso # (Auto) 0.02 (0.00-0.20) K/uL Immature Gran # (Auto) 0.03 (0.01-0.20) K/uL PT 10.9 (9.0-12.0) Seconds INR 1.0 (0.9-1.1) APTT 24 (21-31) Seconds PTT Ratio 0.9 Sodium 138 (136-145) mmol/L Potassium 3.9 (3.5-5.1) mmol/L Chloride 105 (98-107) mmol/L Carbon Dioxide 26 (21-32) mmol/L Anion Gap 7 (3-11) BUN 7 (6-23) mg/dl Creatinine 0.81 (0.6-1.2) mg/dl Est Cr Clr Drug Dosing Not Reportable eGFR 92.31 BUN/Creatinine Ratio 8.6 L (10-20) Glucose 111 H (70-99(Fasting)) mg/dl Calcium 9.1 (8.6-10.3) mg/dl Magnesium 1.9 (1.7-2.4) mg/dl Total Bilirubin 0.6 (0.2-1.0) mg/dl AST 138 H (13-39) U/L ALT 144 H (7-52) U/L Alkaline Phosphatase 37 (34-104) U/L Troponin I High Sens < 2.3 (0-14) pg/ml Total Protein 7.4 (6.0-8.3) gm/dl Albumin 4.3 (3.4-5.0) gm/dl Globulin 3.1 (2.5-4.0) gm/dl Albumin/Globulin Ratio 1.4 (0.9-2) Administered Medications Discontinued Medications Hydromorphone HCl (Hydromorphone Inj 0.5 Mg/0.5 Ml Syr) 0.25 mg IV NOW STA Stop: 04/07/24 22:28 Last Admin: 04/07/24 22:38 Dose: 0.25 mg Documented By: YOVANY Sodium Chloride (Nss) 1,000 mls @ 999 mls/hr IV .Q1H1M ONE Stop: 04/07/24 23:27 Last Admin: 04/07/24 22:37 Dose: 999 mls/hr Documented By: YOVANY Ioversol (Optiray 320 125ml) 125 ml IV ONCE ONE Stop: 04/07/24 22:49 Last Admin: 04/07/24 22:48 Dose: 118 ml Documented By: JASON Lorazepam (Lorazepam 1 Mg/1 Ml Syr Ed Inj Use) 0.5 mg IV ONE STA Stop: 04/07/24 22:28 Last Admin: 04/07/24 23:07 Dose: Not Given Documented By: YOVANY Ondansetron HCl (Ondansetron Inj 2 Mg/Ml 2 Ml Vial) 4 mg IV NOW STA Stop: 04/07/24 22:59 Last Admin: 04/07/24 23:05 Dose: 4 mg Documented By: Imaging Data Radiologist's Impression: Abdomen/Pelvis CT 04/07/24 22:27 Exam(s): CT ABDOMEN + PELVIS With Contrast IV Amt: 118 ML OPTIRAY 320 EXAM: CT Abdomen and Pelvis With Intravenous Contrast CLINICAL HISTORY: Reason for exam: post op abdominal pain. TECHNIQUE: Axial computed tomography images of the abdomen and pelvis with intravenous contrast. CTDI is 27.94 mGy and DLP is 2500.68 mGy-cm. Automated exposure control was utilized for the study. A dose lowering technique was utilized adhering to the principles of ALARA. CONTRAST: Patient received 118 ML OPTIRAY 320 of IV contrast COMPARISON: 03/20/2024. FINDINGS: Lung bases: No consolidation. ABDOMEN: Liver: No mass. Gallbladder and bile ducts: The patient is status post cholecystectomy.. No ductal dilation. Pancreas: No mass. No ductal dilation. Spleen: No splenomegaly. Adrenals: No mass. Kidneys and ureters: No solid mass. No hydronephrosis. Stomach and bowel: There are retained foodstuffs within the stomach. There is air and stool noted in the colon. There are some mildly distended loops of small bowel containing air and fluid.. PELVIS: Appendix: No findings to suggest acute appendicitis. Bladder: No calculi are noted within the bladder.. Reproductive: A tampon is noted within the vagina. Uterus is inhomogeneous.. ABDOMEN and PELVIS: Intraperitoneal space: There is a small amount of free intraperitoneal air.. No significant fluid collection. Bones/joints: There are degenerative changes in the spine.. Soft tissues: There is subcutaneous emphysema.. Vasculature: No abdominal aortic aneurysm. Lymph nodes: No enlarged lymph nodes. IMPRESSION: The patient is status post cholecystectomy. There is a small amount of free intraperitoneal air which is presumably postoperative in nature. There is subcutaneous emphysema. The overall bowel gas pattern may represent an ileus. Electronically signed by: Remy Solorio MD 04/08/24 00:[address] 04/07/24 22:27 CR Exam(s): CT HEAD Without Contrast EXAM: CT Head Without Intravenous Contrast CLINICAL HISTORY: Reason for exam: neuro deficit, acute stroke suspected. TECHNIQUE: Axial computed tomography images of the head/brain without intravenous contrast. CTDI is 28.76 mGy and DLP is 2500.68 mGy-cm. Automated exposure control was utilized for the study. A dose lowering technique was utilized adhering to the principles of ALARA. COMPARISON: Prior head CT from November 04, 2022. FINDINGS: Brain: Unremarkable. No hemorrhage. No significant white matter disease. No edema. Ventricles: Unremarkable. No ventriculomegaly. Bones/joints: Unremarkable. No acute fracture. Soft tissues: Unremarkable. Sinuses: Unremarkable as visualized. No acute sinusitis. Mastoid air cells: Unremarkable as visualized. No mastoid effusion. IMPRESSION: No evidence of acute intracranial pathology. Communications: Call Doctor Stroke Electronically signed by: Chela Lamb MD 04/07/24 23:27 PM Head CTA 04/07/24 22:27 CR Exam(s): CTA HEAD With Contrast IV Amt: 118 ml optiray 320 EXAM: CT Angiography Head With Intravenous Contrast CLINICAL HISTORY: Reason for exam: neuro deficit, acute stroke suspected. TECHNIQUE: Axial computed tomographic angiography images of the head with intravenous contrast. CTDI is 20.76 mGy and DLP is 2500.68 mGy-cm. Automated exposure control was utilized for the study. A dose lowering technique was utilized adhering to the principles of ALARA. MIP reconstructed images were created and reviewed. CONTRAST: Patient received 118 ml optiray 320 of IV contrast COMPARISON: No relevant prior studies available. FINDINGS: The dural venous sinuses are patent. Right internal carotid artery: No acute findings. Intracranial segment is patent with no significant stenosis. No aneurysm. Right anterior cerebral artery: Unremarkable. No occlusion or significant stenosis. No aneurysm. Right middle cerebral artery: Unremarkable. No occlusion or significant stenosis. No aneurysm. Right posterior cerebral artery: Unremarkable. No occlusion or significant stenosis. No aneurysm. Right vertebral artery: Unremarkable as visualized. Left internal carotid artery: No acute findings. Intracranial segment is patent with no significant stenosis. No aneurysm. Left anterior cerebral artery: Unremarkable. No occlusion or significant stenosis. No aneurysm. Left middle cerebral artery: Unremarkable. No occlusion or significant stenosis. No aneurysm. Left posterior cerebral artery: Unremarkable. No occlusion or significant stenosis. No aneurysm. Left vertebral artery: Unremarkable as visualized. Basilar artery: Unremarkable. No occlusion or significant stenosis. No aneurysm. IMPRESSION: Negative CT angiogram of the head. Communications: Verify Receipt Call Doctor Stroke Electronically signed by: Chela Lamb MD 04/07/24 23:30 PM Neck CTA 04/07/24 22:27 CR Exam(s): CTA NECK With Contrast IV Amt: 118 ML OPTIRAY 320 EXAM: CT Angiography Neck With Intravenous Contrast CLINICAL HISTORY: Reason for exam: neuro deficit, acute stroke suspected. TECHNIQUE: Routine carotid CT angiography protocol was performed with intravenous contrast. NASCET criteria using the distal ICAs for comparison were used for evaluation of stenoses. CTDI is 20.76 mGy and DLP is 2500.68 mGy-cm. Automated exposure control was utilized for the study. A dose lowering technique was utilized adhering to the principles of ALARA. MIP reconstructed images were created and reviewed. CONTRAST: Patient received 118 ML OPTIRAY 320 of IV contrast COMPARISON: None. FINDINGS: VASCULATURE: Right common carotid artery: Unremarkable. No occlusion or significant stenosis. No dissection. Right internal carotid artery: Unremarkable. Extracranial segment is patent with no occlusion or significant stenosis. No dissection. Right external carotid artery: Unremarkable. No occlusion. Right vertebral artery: Unremarkable. No occlusion or significant stenosis. No dissection. Left common carotid artery: Unremarkable. No occlusion or significant stenosis. No dissection. Left internal carotid artery: Unremarkable. Extracranial segment is patent with no occlusion or significant stenosis. No dissection. Left external carotid artery: Unremarkable. No occlusion. Left vertebral artery: Unremarkable. No occlusion or significant stenosis. No dissection. NECK: Bones/joints: Unremarkable. No acute fracture. Soft tissues: Prominent mediastinal and hilar lymph nodes. Prominent cervical lymph nodes. Lung apices: Bronchitis with pneumonitis, which may be infectious or inflammatory etiologies. CAROTID STENOSIS REFERENCE USING NASCET CRITERIA: % ICA stenosis = (1 - narrowest ICA diameter/diameter of distal cervical ICA) x 100. Mild - <50% stenosis. Moderate - 50-69% stenosis. Severe - 70-94% stenosis. Near occlusion - 95-99% stenosis. Occluded - 100% stenosis. IMPRESSION: Negative CTA neck. Communications: Verify Receipt Call Doctor Stroke Electronically signed by: Chela Lamb MD 04/07/24 23:31 PM Chest X-Ray 04/07/24 23:02 Exam(s): XR CXR 1 VIEW EXAM: XR Chest, 1 View CLINICAL HISTORY: Reason for exam: post operative. TECHNIQUE: Frontal view of the chest. COMPARISON: 11/04/2022. FINDINGS: There is a poor inspiratory effort. Lungs:. No consolidation. Pleural space: No pleural effusion is seen. No pneumothorax. Heart: Heart is normal in size.. Mediastinum: Unremarkable. Bones/joints: There are some degenerative changes in the spine. IMPRESSION: Poor inspiratory effort. No acute pulmonary disease. Findings appears similar to previous exam. Electronically signed by: Remy Solorio MD 04/08/24 00:13 AM Discharge Plan Visit Data Chief Complaint: Abdominal Pain Stated Complaint: ABD PAIN TO THE SHOULDER, DIZZY, HOLUSINATING ED Provider: Edward Avendano Discharge Problem: RUQ pain, Postoperative abdominal pain, Right arm weakness, Vertigo, Acute confusion Forms Stand Alone Forms: [facility] [employer] Prescriptions Prescriptions: No Action metronidazole 500 mg tablet 500 mg PO BID 7 Days Qty: 14 0RF Magnesium glycinate, zinc, Vitamin D 2 tab PO DAILY epinephrine [EpiPen 2-Connor] 0.3 mg/0.3 mL auto-injector 0.3 mg IM UD PRN (Reason: allergic reaction,severe) Qty: 2 0RF Glutathione Inejction 1 dose INJ WK Patient Comments: with vitamin i80--aerzl on Essential Fatty Acid 1 tab PO DAILY clopidogrel [Plavix] 75 mg tablet 75 mg PO Q OTHER DAY Hold Instructions: Resume on 04/09/24. pantoprazole [Protonix] [address] for susp in packet 40 mg PO DAILY PRN (Reason: Acid Reflux) Patient Comments: per pt on 04/04/24 she states has only used medication 2x cyanocobalamin (vitamin B-12) 1,000 mcg/mL Solution 1,000 mcg SUBCUT WK ibuprofen 200 mg Tablet 600 mg PO Q6H PRN (Reason: Pain) ondansetron 4 mg Tablet,Disintegrating 4 mg PO Q6H PRN (Reason: Nausea) oxycodone 5 mg tablet 5 - 10 mg PO .[id number] PRN (Reason: pain, for initial therapy, max 6 tabs per day) Qty: 15 0RF Referrals Referrals: Jayleen Levine DO [Primary Care Provider] -
[2024-04-07] MEDS: SODIUM CHLORIDE 0.9% 1,000 ML IV ONE (22:37)
[2024-04-07] MEDS: HYDROmorphone INJ 0.5 MG/0.5 ML SYR IV STA (22:38)
[2024-04-07] MEDS: OPTIRAY 320 125ml IV ONE (22:48)
[2024-04-07 22:55] LABS: Basophils # (auto) 0.02 K/uL (0.00-0.20); Basophils % (auto) 0.2 %; Hematocrit (blood only) 38.2 % (37.0-47.0); Hemoglobin 12.9 g/dl (12.0-16.0); Immature Granulocytes # (auto) 0.03 K/uL (0.01-0.20); Immature Granulocytes % (auto) 0.3 %; Lymphocytes # (auto) 1.07 K/uL (1.20-3.40); Lymphocytes % (auto) 10.2 %; Mean Corpuscular Hemoglobin 30.7 pg (25.0-34.0); Mean Corpuscular Hgb Conc 33.8 g/dL (32.0-36.0); Mean Platelet Volume 10.1 fL (9.4-12.4); Monocytes # (auto) 0.61 K/uL (0.11-0.59); Monocytes % (auto) 5.8 %; Neutrophils # (auto) 8.72 K/uL (1.40-6.50); Neutrophils % (auto) 83.5 %; Platelet Count 311 K/uL (130-400); RDW Coefficient of Variation 12.3 % (11.5-14.5); RDW Standard Deviation 40.6 fL (36.4-46.3); White Blood Count 10.45 K/ul (4.8-10.8)
[2024-04-07] MEDS: ONDANSETRON INJ 2 MG/ML 2 ML VIAL IV STA (23:05)
[2024-04-07] MEDS: LORazepam 1 MG/1 ML SYR ED Inj Use IV STA (23:07)
[2024-04-07 23:13] LABS: Alanine Aminotransferase 144 U/L (7-52); Albumin Globulin Ratio 1.4 (0.9-2); Albumin Level 4.3 gm/dl (3.4-5.0); Alkaline Phosphatase 37 U/L (34-104); Anion Gap 7 (3-11); Aspartate Aminotransferase 138 U/L (13-39); BUN Creatinine Ratio 8.6 (10-20); Bilirubin,Total 0.6 mg/dl (0.2-1.0); Blood Urea Nitrogen 7 mg/dl (6-23); Calcium 9.1 mg/dl (8.6-10.3); Carbon Dioxide 26 mmol/L (21-32); Chloride 105 mmol/L (98-107); Globulin 3.1 gm/dl (2.5-4.0); Glucose 111 mg/dl (70-99(Fasting)); Magnesium 1.9 mg/dl (1.7-2.4); Potassium 3.9 mmol/L (3.5-5.1); Sodium 138 mmol/L (136-145); Total Protein 7.4 gm/dl (6.0-8.3)
[2024-04-07 23:20] LABS: Troponin I High Sensitivity < 2.3 pg/ml (0-14)
--- NOTE | 2024-04-07 23:28 | CT Scan Report ---
Exam(s): CT HEAD Without Contrast EXAM: CT Head Without Intravenous Contrast CLINICAL HISTORY: Reason for exam: neuro deficit, acute stroke suspected. TECHNIQUE: Axial computed tomography images of the head/brain without intravenous contrast. CTDI is 28.76 mGy and DLP is 2500.68 mGy-cm. Automated exposure control was utilized for the study. A dose lowering technique was utilized adhering to the principles of ALARA. COMPARISON: Prior head CT from November 04, 2022. FINDINGS: Brain: Unremarkable. No hemorrhage. No significant white matter disease. No edema. Ventricles: Unremarkable. No ventriculomegaly. Bones/joints: Unremarkable. No acute fracture. Soft tissues: Unremarkable. Sinuses: Unremarkable as visualized. No acute sinusitis. Mastoid air cells: Unremarkable as visualized. No mastoid effusion. IMPRESSION: No evidence of acute intracranial pathology. Communications: Call Doctor Stroke Electronically signed by: Chela Lamb MD 04/07/24 23:27 PM
--- NOTE | 2024-04-07 23:31 | CT Scan Report ---
Exam(s): CTA HEAD With Contrast IV Amt: 118 ml optiray 320 EXAM: CT Angiography Head With Intravenous Contrast CLINICAL HISTORY: Reason for exam: neuro deficit, acute stroke suspected. TECHNIQUE: Axial computed tomographic angiography images of the head with intravenous contrast. CTDI is 20.76 mGy and DLP is 2500.68 mGy-cm. Automated exposure control was utilized for the study. A dose lowering technique was utilized adhering to the principles of ALARA. MIP reconstructed images were created and reviewed. CONTRAST: Patient received 118 ml optiray 320 of IV contrast COMPARISON: No relevant prior studies available. FINDINGS: The dural venous sinuses are patent. Right internal carotid artery: No acute findings. Intracranial segment is patent with no significant stenosis. No aneurysm. Right anterior cerebral artery: Unremarkable. No occlusion or significant stenosis. No aneurysm. Right middle cerebral artery: Unremarkable. No occlusion or significant stenosis. No aneurysm. Right posterior cerebral artery: Unremarkable. No occlusion or significant stenosis. No aneurysm. Right vertebral artery: Unremarkable as visualized. Left internal carotid artery: No acute findings. Intracranial segment is patent with no significant stenosis. No aneurysm. Left anterior cerebral artery: Unremarkable. No occlusion or significant stenosis. No aneurysm. Left middle cerebral artery: Unremarkable. No occlusion or significant stenosis. No aneurysm. Left posterior cerebral artery: Unremarkable. No occlusion or significant stenosis. No aneurysm. Left vertebral artery: Unremarkable as visualized. Basilar artery: Unremarkable. No occlusion or significant stenosis. No aneurysm. IMPRESSION: Negative CT angiogram of the head. Communications: Verify Receipt Call Doctor Stroke Electronically signed by: Chela Lamb MD 04/07/24 23:30 PM
--- NOTE | 2024-04-07 23:32 | CT Scan Report ---
Exam(s): CTA NECK With Contrast IV Amt: 118 ML OPTIRAY 320 EXAM: CT Angiography Neck With Intravenous Contrast CLINICAL HISTORY: Reason for exam: neuro deficit, acute stroke suspected. TECHNIQUE: Routine carotid CT angiography protocol was performed with intravenous contrast. NASCET criteria using the distal ICAs for comparison were used for evaluation of stenoses. CTDI is 20.76 mGy and DLP is 2500.68 mGy-cm. Automated exposure control was utilized for the study. A dose lowering technique was utilized adhering to the principles of ALARA. MIP reconstructed images were created and reviewed. CONTRAST: Patient received 118 ML OPTIRAY 320 of IV contrast COMPARISON: None. FINDINGS: VASCULATURE: Right common carotid artery: Unremarkable. No occlusion or significant stenosis. No dissection. Right internal carotid artery: Unremarkable. Extracranial segment is patent with no occlusion or significant stenosis. No dissection. Right external carotid artery: Unremarkable. No occlusion. Right vertebral artery: Unremarkable. No occlusion or significant stenosis. No dissection. Left common carotid artery: Unremarkable. No occlusion or significant stenosis. No dissection. Left internal carotid artery: Unremarkable. Extracranial segment is patent with no occlusion or significant stenosis. No dissection. Left external carotid artery: Unremarkable. No occlusion. Left vertebral artery: Unremarkable. No occlusion or significant stenosis. No dissection. NECK: Bones/joints: Unremarkable. No acute fracture. Soft tissues: Prominent mediastinal and hilar lymph nodes. Prominent cervical lymph nodes. Lung apices: Bronchitis with pneumonitis, which may be infectious or inflammatory etiologies. CAROTID STENOSIS REFERENCE USING NASCET CRITERIA: % ICA stenosis = (1 - narrowest ICA diameter/diameter of distal cervical ICA) x 100. Mild - <50% stenosis. Moderate - 50-69% stenosis. Severe - 70-94% stenosis. Near occlusion - 95-99% stenosis. Occluded - 100% stenosis. IMPRESSION: Negative CTA neck. Communications: Verify Receipt Call Doctor Stroke Electronically signed by: Chela Lamb MD 04/07/24 23:31 PM
[2024-04-07 23:45] LABS: Partial Thromboplastin Ratio 0.9; Partial Thromboplastin Time 24 Seconds (21-31); Prothrombin Time 10.9 Seconds (9.0-12.0)
--- NOTE | 2024-04-08 00:13 | CT Scan Report ---
Exam(s): CT ABDOMEN + PELVIS With Contrast IV Amt: 118 ML OPTIRAY 320 EXAM: CT Abdomen and Pelvis With Intravenous Contrast CLINICAL HISTORY: Reason for exam: post op abdominal pain. TECHNIQUE: Axial computed tomography images of the abdomen and pelvis with intravenous contrast. CTDI is 27.94 mGy and DLP is 2500.68 mGy-cm. Automated exposure control was utilized for the study. A dose lowering technique was utilized adhering to the principles of ALARA. CONTRAST: Patient received 118 ML OPTIRAY 320 of IV contrast COMPARISON: 03/20/2024. FINDINGS: Lung bases: No consolidation. ABDOMEN: Liver: No mass. Gallbladder and bile ducts: The patient is status post cholecystectomy.. No ductal dilation. Pancreas: No mass. No ductal dilation. Spleen: No splenomegaly. Adrenals: No mass. Kidneys and ureters: No solid mass. No hydronephrosis. Stomach and bowel: There are retained foodstuffs within the stomach. There is air and stool noted in the colon. There are some mildly distended loops of small bowel containing air and fluid.. PELVIS: Appendix: No findings to suggest acute appendicitis. Bladder: No calculi are noted within the bladder.. Reproductive: A tampon is noted within the vagina. Uterus is inhomogeneous.. ABDOMEN and PELVIS: Intraperitoneal space: There is a small amount of free intraperitoneal air.. No significant fluid collection. Bones/joints: There are degenerative changes in the spine.. Soft tissues: There is subcutaneous emphysema.. Vasculature: No abdominal aortic aneurysm. Lymph nodes: No enlarged lymph nodes. IMPRESSION: The patient is status post cholecystectomy. There is a small amount of free intraperitoneal air which is presumably postoperative in nature. There is subcutaneous emphysema. The overall bowel gas pattern may represent an ileus. Electronically signed by: Remy Solorio MD 04/08/24 00:12 AM
--- NOTE | 2024-04-08 00:14 | XRay Report ---
Exam(s): XR CXR 1 VIEW EXAM: XR Chest, 1 View CLINICAL HISTORY: Reason for exam: post operative. TECHNIQUE: Frontal view of the chest. COMPARISON: 11/04/2022. FINDINGS: There is a poor inspiratory effort. Lungs:. No consolidation. Pleural space: No pleural effusion is seen. No pneumothorax. Heart: Heart is normal in size.. Mediastinum: Unremarkable. Bones/joints: There are some degenerative changes in the spine. IMPRESSION: Poor inspiratory effort. No acute pulmonary disease. Findings appears similar to previous exam. Electronically signed by: Remy Solorio MD 04/08/24 00:13 AM
[2024-04-08] MEDS: KETOROLAC 30 MG/ML VIAL IV STA ×2 (00:47→18:08)
[2024-04-08] MEDS: FAMOTIDINE 20MG IV PUSH 20 MG/5 ML SYR IV STA (00:47)
[2024-04-08] MEDS ORDERED: ONDANSETRON INJ 2 MG/ML 2 ML VIAL IV PRN (01:38)
--- NOTE | 2024-04-08 01:49 | History & Physical Report ---
Date of Service April 08, 2024 Assessment & Plan (1) Postoperative abdominal pain: (2) Acute confusion: (3) Vertigo: (4) Right arm weakness: (5) Acute cholecystitis due to biliary calculus: (6) RUQ pain: (7) GERD (gastroesophageal reflux disease): (8) History of systemic lupus erythematosus: Plan Postoperative cholecystectomy complications- Patient presents to the emergency department with symptoms of confusion, amnesia for the days events, abdominal pain right upper quadrant extending to right shoulder and heaviness in her right leg and arm At the time my examination, other than primarily feeling fatigued, patient's symptoms have significantly improved. CT scan abdomen pelvis notes that she is status postcholecystectomy, and that there is subcutaneous emphysema and possible ileus Patient will be admitted to medical telemetry, kept n.p.o. overnight, and then resume oral intake and medications AST 138, ALT 144 none, postoperatively, but recheck in the a.m. Patient did have CT scan, CTA head and neck, all of which were negative Give pantoprazole 40 mg IV now Zofran 4 mg IV every 6 hours as needed Toradol 15 mg IV every 6 hours as needed for moderate pain Dilaudid 0.25 mg IV every 3 hours as needed for severe pain NSS + KCl 20 mEq at 100 mL/h x 1 L Meclizine 12.5 mg by mouth every 6 hours as needed for an vertigo Repeat CBC with differential, chemistry profile and magnesium level History of Present Illness Chief Complaint: The patient presents to the emergency department with severe right upper quadrant pain which radiates to her right chest and right shoulder, with noted heaviness on her right arm and leg, which is since resolved. She also notes that she had been hallucinating, of which she was aware of, which has since improved and resolved. Symptoms all occurred after gallbladder surgery this morning, and was discharged a few hours afterwards to home Primary Care Provider: Jayleen Levine DO The patient is a 43-year-old female iron deficiency, fatty liver, GERD, history of SLE factor V Leiden mutation and hemiplegic migraine. She underwent a cholecystectomy of 04/07, and after appropriate interval during the PACU, was discharged to home. Afterwards, she noted symptoms as above, presented to the ED for assessment. In addition, she reports that she has had some off balance issues which have since resolved, and she also reports that she did lose part of the day which does not remember events that took place. Allergies Allergy/AdvReac Type Severity Reaction Status Date / Time Penicillins Allergy Severe SHORTNESS Verified 04/07/24 07:04 OF BREATH Sulfa (Sulfonamide Allergy Severe ANAPHYLACTIC Verified 04/07/24 07:04 Antibiotics) REACTION morphine Allergy Intermediate RASH, PT Verified 04/07/24 07:04 HAS TAKEN DILAUDID IN PAST WITH NO RXN sulfamethoxazole Allergy Mild Rash Verified 04/07/24 07:04 [From Bactrim] trimethoprim [From Bactrim] Allergy Mild Rash Verified 04/07/24 07:04 hydroxychloroquine AdvReac Severe CHANGE IN Verified 04/07/24 07:04 [From Plaquenil] MENTAL STATUS, NEURO COMPLICATIONS DETERGENTS Allergy Unknown TIDE Uncoded 04/07/24 07:04 Home Medications Medication Instructions Recorded Confirmed Type Magnesium glycinate, zinc, Vitamin 2 tab PO DAILY 12/09/23 04/07/24 History D epinephrine 0.3 mg/0.3 mL 0.3 mg (0.3 mL) IM UD PRN allergic 12/09/23 04/07/24 Rx injection, auto-injector (EpiPen reaction,severe #2 ea 2-Connor) Glutathione Inejction 1 dose INJ WK 03/28/24 04/07/24 History metronidazole 500 mg tablet 500 mg PO BID 7 days #14 tabs 04/01/24 04/07/24 Rx Essential Fatty Acid 1 tab PO DAILY 04/04/24 04/07/24 History clopidogrel 75 mg tablet (Plavix) 75 mg PO Q OTHER DAY 04/04/24 04/07/24 History cyanocobalamin (vitamin B-12) 1,000 mcg subcut WK 04/07/24 04/07/24 History 1,000 mcg/mL injection solution ibuprofen 200 mg tablet 600 mg PO Q6H PRN Pain 04/07/24 04/07/24 History ondansetron 4 mg disintegrating 4 mg PO Q6H PRN Nausea 04/07/24 04/07/24 History tablet oxycodone 5 mg tablet 5 - 10 mg (1 - 2 x 5 mg) PO 04/07/24 Rx .[id number] PRN pain, for initial therapy, max 6 tabs per day #15 tabs pantoprazole 40 mg granules 40 mg PO DAILY PRN Acid Reflux 04/07/24 04/07/24 History delayed-release for susp in packet (Protonix) Past Med/Surg History Problem List (Updated 04/08/24 @ 00:49 by Edward Avendano MD) Acute confusion (Acute) Vertigo (Acute) Right arm weakness (Acute) Postoperative abdominal pain (Acute) Encounter for pre-operative examination Acute cholecystitis due to biliary calculus RUQ pain (Acute) Abdominal pain (Acute) Iron deficiency Fatty liver GERD (gastroesophageal reflux disease) History of systemic lupus erythematosus Tinnitus of right ear Factor 5 Leiden mutation, heterozygous (Chronic) Hemiplegic migraine Medical History (Updated 04/08/24 @ 00:49 by Edward Avendano MD) Iron deficiency anemia follows with Hematology History of DVT (deep vein thrombosis) LLE 6mos post (per PCP note) Fatty liver Rheumatoid arthritis Dental bridge present per pt is removable Cracked tooth back right wisdom tooth Factor 5 Leiden mutation, heterozygous on plavix Color blindness Hearing loss in right ear History of TIA (transient ischemic attack) 'multiple TIA-like events' per PCP. Per pt, 'last one was roughly 1 yr ago (2022)' Migraine Lupus SLE History of Raynaud's syndrome Costochondritis History of multiple miscarriages Surgical History (Updated 04/07/24 @ 10:17 by Kelly Betancourt RN) Hx laparoscopic cholecystectomy (04/07/24) Robotic Assisted Laparoscopic Cholecystectomy(Not Applicable) - Mily Croosk DO History of dilatation and curettage Family History Grandfather Diabetes Heart disease Hypertension Grandmother Stroke Other Allergies Asthma No family history of adverse response to anesthesia No pertinent family history Denies family history of Ovarian cancer Prostate cancer Myocardial infarction Breast cancer Colorectal cancer Social History Smoking Status: Never smoker Second Hand Exposure: No; Do You Dip or Chew Tobacco: No; Hx Alcohol Use: No Hx Substance Use: No Preferred Language: Indonesian Communication Ability: Effective Visual Impairment: Partially Limited Hearing Ability: Normal Hydraulic Assembler Required: No Beliefs That Will Affect Care: None marital status: Current Living Situation: Family Current Living Situation Comment: lives at home with and son current occupational status: employed and student 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 How many Children do You have: 3 Other Information That Helps Us Care for You: No Feels Safe at Home: Yes Safety Concerns: Feels Safe At This Time Diet: gluten free and lactose free caffeine: No during the past year weight has: decreased > 10 lbs Dental Care, Regularly: Yes Physical Activity Frequency: Daily Seatbelt Use: always Sunscreen Use: Yes Assistive Devices: Glasses Review of Systems Review of Systems: The patient denies palpitations, cough, lower extremity swelling, sore throat, fevers, chills, sweats, vomiting, diarrhea , constipation, blood in urine or stool, dysuria, urinary frequency or urgency, loss of consciousness, rash, abnormal bruising or bleeding, focal weakness, numbness or tingling in arms or legs, generalized arthralgias or myalgias, back or neck pain, or night sweats. The review of systems is otherwise negative other than for that already noted above, and at least 10 systems have been reviewed. Physical Exam Physical Exam: The patient is awake, alert and oriented 3, well developed and well nourished, normocephalic and atraumatic, lying in bed and in no acute distress. HEENT--PERRL, EOMI, mucous membranes and oropharynx mildly dry. Neck--supple. No JVD. No bruits. Thyroid normal, trachea midline, no adenopathy. Heart--normal S1 and S2. No murmurs, rubs or gallops. Lungs--clear bilaterally, no respiratory distress, no accessory muscle use. Abdomen--normal bowel sounds and soft. Nontender. Nondistended, no hernias or masses, no organomegaly. Extremities--no cyanosis or clubbing. No edema. There are good distal pulses b/l. Dermatologic--normal skin turgor, normal color, no abnormal lymph nodes, no rash. Neurologic--cranial nerves II through XII grossly intact. Rheumatologic--normal range of motion. Psychiatric--normal affect. Results & Data Results & Data Vital Signs (Past 12 Hours) Vital Signs Temp Pulse Resp BP Pulse Ox O2 Del Method 04/08/24 01:08 77 04/08/24 00:00 82 17 106/71 99 04/07/24 23:45 89 19 107/80 100 11/07/24 23:36 110 H 19 100 04/07/24 23:27 83 15 100 04/07/24 22:09 37.4 C 87 20 110/67 97 Room Air Laboratory Results Laboratory Results WBC 10.45 K/ul (4.8-10.8) 04/07/24 22:33 RBC 4.20 M/uL (4.20-5.40) 04/07/24 22:33 Hgb 12.9 g/dl (12.0-16.0) 04/07/24 22:33 Hct 38.2 % (37.0-47.0) 04/07/24 22: MCV 91.0 fL (80.0-100.0) 04/07/24 22: MCH 30.7 pg (25.0-34.0) 04/07/24 22: MCHC 33.8 g/dL (32.0-36.0) 04/07/24 22:33 RDW Std Deviation 40.6 fL (36.4-46.3) 04/07/24 22:33 RDW Coeff of Richelle 12.3 % (11.5-14.5) 04/07/24 22: Plt Count 311 K/uL (130-400) 04/07/24 22: MPV 10.1 fL (9.4-12.4) 04/07/24 22:33 Immature Gran % (Auto) 0.3 % 04/07/24 22: Neut % (Auto) 83.5 % 04/07/24 22:33 Lymph % (Auto) 10.2 % 04/07/24 22:33 Ripley % (Auto) 5.8 % 04/07/24 22:33 Eos % (Auto) 0.0 % 04/07/24 22:33 Baso % (Auto) 0.2 % 04/07/24 22:33 Neut # (Auto) 8.72 K/uL (1.40-6.50) H 04/07/24 22:33 Lymph # (Auto) 1.07 K/uL (1.20-3.40) L 04/07/24 22:33 Ripley # (Auto) 0.61 K/uL (0.11-0.59) H 04/07/24 22:33 Eos # (Auto) 0.00 K/uL (0.00-0.50) 04/07/24 22:33 Baso # (Auto) 0.02 K/uL (0.00-0.20) 04/07/24 22:33 Immature Gran # (Auto) 0.03 K/uL (0.01-0.20) 04/07/24 22:33 PT 10.9 Seconds (9.0-12.0) 04/07/24 22:33 INR 1.0 (0.9-1.1) 04/07/24 22:33 APTT 24 Seconds (21-31) 04/07/24 22:33 PTT Ratio 0.9 04/07/24 22:33 Sodium 138 mmol/L (136-145) 04/07/24 22:33 Potassium 3.9 mmol/L (3.5-5.1) 04/07/24 22:33 Chloride 105 mmol/L (98-107) 04/07/24 22:33 Carbon Dioxide 26 mmol/L (21-32) 04/07/24 22:33 Anion Gap 7 (3-11) 04/07/24 22:33 BUN 7 mg/dl (6-23) 04/07/24 22:33 Creatinine 0.81 mg/dl (0.6-1.2) 04/07/24 22:33 Est Cr Clr Drug Dosing Not Reportable 04/07/24 22:33 eGFR 92.31 04/07/24 22:33 BUN/Creatinine Ratio 8.6 (10-20) L 04/07/24 22:33 Glucose 111 mg/dl (70-99(Fasting)) H 04/07/24 22:33 Calcium 9.1 mg/dl (8.6-10.3) 04/07/24 22:33 Magnesium 1.9 mg/dl (1.7-2.4) 04/07/24 22:33 Total Bilirubin 0.6 mg/dl (0.2-1.0) 04/07/24 22:33 AST 138 U/L (13-39) H 04/07/24 22:33 ALT 144 U/L (7-52) H 04/07/24 22:33 Alkaline Phosphatase 37 U/L (34-104) 04/07/24 22:33 Troponin I High Sens < 2.3 pg/ml (0-14) 04/07/24 22:33 Total Protein 7.4 gm/dl (6.0-8.3) 04/07/24 22:33 Albumin 4.3 gm/dl (3.4-5.0) 04/07/24 22:33 Globulin 3.1 gm/dl (2.5-4.0) 04/07/24 22:33 Albumin/Globulin Ratio 1.4 (0.9-2) 04/07/24 22:33 Impressions Abdomen/Pelvis CT 04/07/24 22:27 Exam(s): CT ABDOMEN + PELVIS With Contrast IV Amt: 118 ML OPTIRAY 320 EXAM: CT Abdomen and Pelvis With Intravenous Contrast CLINICAL HISTORY: Reason for exam: post op abdominal pain. TECHNIQUE: Axial computed tomography images of the abdomen and pelvis with intravenous contrast. CTDI is 27.94 mGy and DLP is 2500.68 mGy-cm. Automated exposure control was utilized for the study. A dose lowering technique was utilized adhering to the principles of ALARA. CONTRAST: Patient received 118 ML OPTIRAY 320 of IV contrast COMPARISON: 03/20/2024. FINDINGS: Lung bases: No consolidation. ABDOMEN: Liver: No mass. Gallbladder and bile ducts: The patient is status post cholecystectomy.. No ductal dilation. Pancreas: No mass. No ductal dilation. Spleen: No splenomegaly. Adrenals: No mass. Kidneys and ureters: No solid mass. No hydronephrosis. Stomach and bowel: There are retained foodstuffs within the stomach. There is air and stool noted in the colon. There are some mildly distended loops of small bowel containing air and fluid.. PELVIS: Appendix: No findings to suggest acute appendicitis. Bladder: No calculi are noted within the bladder.. Reproductive: A tampon is noted within the vagina. Uterus is inhomogeneous.. ABDOMEN and PELVIS: Intraperitoneal space: There is a small amount of free intraperitoneal air.. No significant fluid collection. Bones/joints: There are degenerative changes in the spine.. Soft tissues: There is subcutaneous emphysema.. Vasculature: No abdominal aortic aneurysm. Lymph nodes: No enlarged lymph nodes. IMPRESSION: The patient is status post cholecystectomy. There is a small amount of free intraperitoneal air which is presumably postoperative in nature. There is subcutaneous emphysema. The overall bowel gas pattern may represent an ileus. Electronically signed by: Remy Solorio MD 04/08/24 00:[address] 04/07/24 22:27 CR Exam(s): CT HEAD Without Contrast EXAM: CT Head Without Intravenous Contrast CLINICAL HISTORY: Reason for exam: neuro deficit, acute stroke suspected. TECHNIQUE: Axial computed tomography images of the head/brain without intravenous contrast. CTDI is 28.76 mGy and DLP is 2500.68 mGy-cm. Automated exposure control was utilized for the study. A dose lowering technique was utilized adhering to the principles of ALARA. COMPARISON: Prior head CT from November 04, 2022. FINDINGS: Brain: Unremarkable. No hemorrhage. No significant white matter disease. No edema. Ventricles: Unremarkable. No ventriculomegaly. Bones/joints: Unremarkable. No acute fracture. Soft tissues: Unremarkable. Sinuses: Unremarkable as visualized. No acute sinusitis. Mastoid air cells: Unremarkable as visualized. No mastoid effusion. IMPRESSION: No evidence of acute intracranial pathology. Communications: Call Doctor Stroke Electronically signed by: Chela Lamb MD 04/07/24 23:27 PM Head CTA 04/07/24 22:27 CR Exam(s): CTA HEAD With Contrast IV Amt: 118 ml optiray 320 EXAM: CT Angiography Head With Intravenous Contrast CLINICAL HISTORY: Reason for exam: neuro deficit, acute stroke suspected. TECHNIQUE: Axial computed tomographic angiography images of the head with intravenous contrast. CTDI is 20.76 mGy and DLP is 2500.68 mGy-cm. Automated exposure control was utilized for the study. A dose lowering technique was utilized adhering to the principles of ALARA. MIP reconstructed images were created and reviewed. CONTRAST: Patient received 118 ml optiray 320 of IV contrast COMPARISON: No relevant prior studies available. FINDINGS: The dural venous sinuses are patent. Right internal carotid artery: No acute findings. Intracranial segment is patent with no significant stenosis. No aneurysm. Right anterior cerebral artery: Unremarkable. No occlusion or significant stenosis. No aneurysm. Right middle cerebral artery: Unremarkable. No occlusion or significant stenosis. No aneurysm. Right posterior cerebral artery: Unremarkable. No occlusion or significant stenosis. No aneurysm. Right vertebral artery: Unremarkable as visualized. Left internal carotid artery: No acute findings. Intracranial segment is patent with no significant stenosis. No aneurysm. Left anterior cerebral artery: Unremarkable. No occlusion or significant stenosis. No aneurysm. Left middle cerebral artery: Unremarkable. No occlusion or significant stenosis. No aneurysm. Left posterior cerebral artery: Unremarkable. No occlusion or significant stenosis. No aneurysm. Left vertebral artery: Unremarkable as visualized. Basilar artery: Unremarkable. No occlusion or significant stenosis. No aneurysm. IMPRESSION: Negative CT angiogram of the head. Communications: Verify Receipt Call Doctor Stroke Electronically signed by: Chela Lamb MD 04/07/24 23:30 PM Neck CTA 04/07/24 22:27 CR Exam(s): CTA NECK With Contrast IV Amt: 118 ML OPTIRAY 320 EXAM: CT Angiography Neck With Intravenous Contrast CLINICAL HISTORY: Reason for exam: neuro deficit, acute stroke suspected. TECHNIQUE: Routine carotid CT angiography protocol was performed with intravenous contrast. NASCET criteria using the distal ICAs for comparison were used for evaluation of stenoses. CTDI is 20.76 mGy and DLP is 2500.68 mGy-cm. Automated exposure control was utilized for the study. A dose lowering technique was utilized adhering to the principles of ALARA. MIP reconstructed images were created and reviewed. CONTRAST: Patient received 118 ML OPTIRAY 320 of IV contrast COMPARISON: None. FINDINGS: VASCULATURE: Right common carotid artery: Unremarkable. No occlusion or significant stenosis. No dissection. Right internal carotid artery: Unremarkable. Extracranial segment is patent with no occlusion or significant stenosis. No dissection. Right external carotid artery: Unremarkable. No occlusion. Right vertebral artery: Unremarkable. No occlusion or significant stenosis. No dissection. Left common carotid artery: Unremarkable. No occlusion or significant stenosis. No dissection. Left internal carotid artery: Unremarkable. Extracranial segment is patent with no occlusion or significant stenosis. No dissection. Left external carotid artery: Unremarkable. No occlusion. Left vertebral artery: Unremarkable. No occlusion or significant stenosis. No dissection. NECK: Bones/joints: Unremarkable. No acute fracture. Soft tissues: Prominent mediastinal and hilar lymph nodes. Prominent cervical lymph nodes. Lung apices: Bronchitis with pneumonitis, which may be infectious or inflammatory etiologies. CAROTID STENOSIS REFERENCE USING NASCET CRITERIA: % ICA stenosis = (1 - narrowest ICA diameter/diameter of distal cervical ICA) x 100. Mild - <50% stenosis. Moderate - 50-69% stenosis. Severe - 70-94% stenosis. Near occlusion - 95-99% stenosis. Occluded - 100% stenosis. IMPRESSION: Negative CTA neck. Communications: Verify Receipt Call Doctor Stroke Electronically signed by: Chela Lamb MD 04/07/24 23:31 PM Chest X-Ray 04/07/24 23:02 Exam(s): XR CXR 1 VIEW EXAM: XR Chest, 1 View CLINICAL HISTORY: Reason for exam: post operative. TECHNIQUE: Frontal view of the chest. COMPARISON: 11/04/2022. FINDINGS: There is a poor inspiratory effort. Lungs:. No consolidation. Pleural space: No pleural effusion is seen. No pneumothorax. Heart: Heart is normal in size.. Mediastinum: Unremarkable. Bones/joints: There are some degenerative changes in the spine. IMPRESSION: Poor inspiratory effort. No acute pulmonary disease. Findings appears similar to previous exam. Electronically signed by: Remy Solorio MD 04/08/24 00:13 AM Code Status & VTE Plan Code Status Full code VTE Prophylaxis Plan VTE Prophylaxis will be ordered: Yes PG Care Time/CCT Total # of Minutes Spent Total Time Spent with Patient: Total time spent is greater than 50% in coordination of care (as documented) at patient's floor/unit and/or counseling patient: Coding Level of Care Code 44533 INT INP/OBS CARE 2/55MIN Diagnoses Postoperative abdominal pain R10.9; G89.18 Acute confusion R41.0 Vertigo R42 Right arm weakness R29.898 Acute cholecystitis due to biliary calculus K80.00 RUQ pain R10.11 GERD (gastroesophageal reflux disease) K21.9 History of systemic lupus erythematosus M32.9
[2024-04-08] MEDS: HYDROmorphone INJ 0.5 MG/0.5 ML SYR IV PRN (03:31)
[2024-04-08] MEDS: PANTOprazole 40 MG/10 ML SYR IV ONE (04:05)
[2024-04-08] MEDS: NSS + 20MEQ KCL 20 MEQ/1,000 ML BAG IV SCH (04:24)
[2024-04-08] MEDS: CLOPIDOGREL BISULFATE 75 MG TAB PO STA (04:25)
[2024-04-08 07:15] LABS: Basophils # (auto) 0.03 K/uL (0.00-0.20); Basophils % (auto) 0.3 %; Eosinophils # (auto) 0.01 K/uL (0.00-0.50); Eosinophils % (auto) 0.1 %; Hematocrit (blood only) 33.2 % (37.0-47.0); Hemoglobin 11.2 g/dl (12.0-16.0); Immature Granulocytes # (auto) 0.02 K/uL (0.01-0.20); Immature Granulocytes % (auto) 0.2 %; Lymphocytes # (auto) 2.11 K/uL (1.20-3.40); Lymphocytes % (auto) 21.4 %; Mean Corpuscular Hgb Conc 33.7 g/dL (32.0-36.0); Monocytes # (auto) 0.78 K/uL (0.11-0.59); Monocytes % (auto) 7.9 %; Neutrophils # (auto) 6.91 K/uL (1.40-6.50); Neutrophils % (auto) 70.1 %; Platelet Count 248 K/uL (130-400); RDW Coefficient of Variation 12.4 % (11.5-14.5); Red Blood Count 3.61 M/uL (4.20-5.40); White Blood Count 9.86 K/ul (4.8-10.8)
[2024-04-08 07:36] LABS: Albumin Globulin Ratio 1.5 (0.9-2); Albumin Level 3.5 gm/dl (3.4-5.0); BUN Creatinine Ratio 8.2 (10-20); Bilirubin,Total 0.4 mg/dl (0.2-1.0); Calcium 8.5 mg/dl (8.6-10.3); Creatinine Clr Calc Pharmacy 96.6 ml/min; Globulin 2.4 gm/dl (2.5-4.0); Potassium 3.7 mmol/L (3.5-5.1); Total Protein 5.9 gm/dl (6.0-8.3)
[2024-04-08] MEDS: KETOROLAC TROMETHAMINE 15 MG/ML VIAL IV PRN (09:49)
[2024-04-08] MEDS: ENOXAPARIN INJ 40 MG/0.4 ML SYR SQ SCH (09:49)
[2024-04-08] MEDS: KETOROLAC TROMETHAMINE 15 MG/ML VIAL IV ONE (11:21)
--- NOTE | 2024-04-08 13:34 | Electrocardiogram Report ---
Test Reason : Blood Pressure : */* mmHG Vent. Rate : 75 BPM Atrial Rate : 75 BPM P-R Int : 148 ms QRS Dur : 80 ms QT Int : 388 ms P-R-T Axes : 41 11 24 degrees QTcB Int : 433 ms Normal sinus rhythm Normal ECG When compared with ECG of 04-Nov-2022 21:04, No significant change was found Confirmed by Joel Reed ([id number]) on 04/08/2024 1:34:03 PM Referred By: Confirmed By: Joel Reed
--- NOTE | 2024-04-08 13:49 | Communication Note ---
Date of Service: April 08, 2024 Please refer to the H&P dictated earlier this morning for details of presentation on admission. In brief, the patient underwent laparoscopic cholecystectomy on 04/07 and was discharged to home. However, she had been off balance, having hallucinations and right upper quadrant pain that brought her back to the hospital. She says that she is feeling a little bit better today. Will monitor her. This is most likely due to anesthesia and mild postoperative complications. Continue IV fluids. Continue symptomatic treatment. LFTs trending down. BMP and CBC reasonable. I encouraged her to ambulate when she can.
[2024-04-08] MEDS ORDERED: POLYETHYLENE (MIRALAX) 17 GM PACK PO PRN (18:45)
[2024-04-08] MEDS: DOCUSATE SODIUM 100 MG CAP PO SCH (20:13)
[2024-04-09] MEDS: KETOROLAC TROMETHAMINE 15 MG/ML VIAL IV PRN (00:21)
[2024-04-09 07:35] LABS: Basophils # (auto) 0.05 K/uL (0.00-0.20); Basophils % (auto) 0.7 %; Eosinophils # (auto) 0.06 K/uL (0.00-0.50); Eosinophils % (auto) 0.8 %; Hematocrit (blood only) 38.4 % (37.0-47.0); Hemoglobin 12.8 g/dl (12.0-16.0); Immature Granulocytes # (auto) 0.05 K/uL (0.01-0.20); Immature Granulocytes % (auto) 0.7 %; Lymphocytes # (auto) 2.09 K/uL (1.20-3.40); Lymphocytes % (auto) 27.9 %; Mean Corpuscular Hemoglobin 31.3 pg (25.0-34.0); Mean Corpuscular Hgb Conc 33.3 g/dL (32.0-36.0); Mean Corpuscular Volume 93.9 fL (80.0-100.0); Mean Platelet Volume 10.1 fL (9.4-12.4); Monocytes # (auto) 0.52 K/uL (0.11-0.59); Neutrophils # (auto) 4.71 K/uL (1.40-6.50); Neutrophils % (auto) 62.9 %; Platelet Count 264 K/uL (130-400); RDW Coefficient of Variation 12.5 % (11.5-14.5); RDW Standard Deviation 43.1 fL (36.4-46.3); Red Blood Count 4.09 M/uL (4.20-5.40); White Blood Count 7.48 K/ul (4.8-10.8)
[2024-04-09 08:00] LABS: Albumin Globulin Ratio 1.3 (0.9-2); BUN Creatinine Ratio 9.8 (10-20); Bilirubin,Total 0.6 mg/dl (0.2-1.0); Calcium 8.9 mg/dl (8.6-10.3); Creatinine Clr Calc Pharmacy 103.7 ml/min; Magnesium 1.9 mg/dl (1.7-2.4); Potassium 3.9 mmol/L (3.5-5.1)
[2024-04-09] MEDS: KETOROLAC TROMETHAMINE 10 MG TABLET PO STA (08:28)
[2024-04-09] MEDS: MECLIZINE 12.5 MG TAB PO PRN (09:14)
--- NOTE | 2024-04-09 12:18 | Hospitalist Progress Note ---
Date of Service April 09, 2024 Assessment & Plan (1) Postoperative abdominal pain: (2) Acute confusion: (3) Vertigo: (4) Right arm weakness: (5) Acute cholecystitis due to biliary calculus: (6) RUQ pain: (7) GERD (gastroesophageal reflux disease): (8) History of systemic lupus erythematosus: Plan Postoperative cholecystectomy complications- Patient presents to the emergency department with symptoms of confusion, amnesia for the days events, abdominal pain right upper quadrant extending to right shoulder and heaviness in her right leg and arm Some of her symptoms are most likely due to anesthesia CT scan abdomen pelvis notes that she is status postcholecystectomy, and that there is subcutaneous emphysema and possible ileus AST, ALT have trended down Patient did have CT scan, CTA head and neck, all of which were negative Treat pain with ibuprofen IV fluids discontinued Patient is encouraged to drink p.o. fluids Advance diet as tolerated Meclizine for vertigo/dizziness Patient is uncomfortable with the discharge plan today because of feeling woozy. Will keep her here for another day Incentive spirometer Encourage ambulation Admission and Anticipated Discharge Date Admission Date: April 08, 2024 Subjective Patient complains of feeling woozy/dizzy. She is saying that she feels better overall. But she is not back to her usual baseline. Her aches and pains have improved. She is not confused anymore but her brain is still slightly foggy. She was able to ambulate to the bathroom and back. She has not stepped out of her room yet. Review of Systems Review of Systems: All systems reviewed & are unremarkable except as noted in Subjective Physical Exam Physical Exam: General: Awake, conversant Heart: S1, S2/regular rate and rhythm, no murmur rubs or gallops Lungs: Clear to auscultation bilaterally. Normal effort Abdomen: Soft/nondistended. Mild tenderness to palpation without rebound, rigidity or guarding. No hepatosplenomegaly Extremities: No clubbing/cyanosis. No edema Behavior: Appropriate, cooperative Results & Data Results & Data Vital Signs (Past 12 Hours) Vital Signs Temp Pulse Pulse Resp BP BP Pulse Ox 04/09/24 11:56 36.8 C 76 16 108/78 98 04/09/24 07:58 36.8 C 80 16 114/78 98 04/09/24 06:48 36.7 C 65 18 99/66 L 96 04/09/24 03:03 Pulse Ox O2 Del Method O2 Del Method 04/09/24 11:56 Room Air 04/09/24 07:58 Room Air 04/09/24 06:48 Room Air 04/09/24 03:03 96 Room Air Laboratory Results Abnormal lab results 04/09/24 Range/Units 07:03 RBC 4.09 L (4.20-5.40) M/uL BUN/Creatinine Ratio 9.8 L (10-20) AST 43 H (13-39) U/L ALT 85 H (7-52) U/L PG Care Time/CCT Total # of Minutes Spent Total Time Spent with Patient: Total time spent is greater than 50% in coordination of care (as documented) at patient's floor/unit and/or counseling patient: Coding Level of Care Code 82528 SUB INP/OBS CARE 2/35MIN Diagnoses Postoperative abdominal pain R10.9; G89.18 Acute confusion R41.0 Vertigo R42 Right arm weakness R29.898 Acute cholecystitis due to biliary calculus K80.00 RUQ pain R10.11 GERD (gastroesophageal reflux disease) K21.9 History of systemic lupus erythematosus M32.9
[2024-04-09] MEDS: metroNIDAZOLE 500 MG TAB PO SCH (13:25)
[2024-04-09] MEDS: IBUPROFEN 200 MG TAB PO PRN (13:26)
[2024-04-09] MEDS: SODIUM CHLORIDE 0.9% 1,000 ML IV SCH (14:13)
[2024-04-09] MEDS: KETOROLAC 30 MG/ML VIAL ONE (16:46)
[2024-04-09] MEDS: CLOPIDOGREL BISULFATE 75 MG TAB PO SCH (21:31)
[2024-04-10] MEDS ORDERED: Nursing to Pharmacy Communication SCH (05:45)
[2024-04-10 07:09] LABS: Basophils # (auto) 0.04 K/uL (0.00-0.20); Basophils % (auto) 0.8 %; Eosinophils % (auto) 1.9 %; Hematocrit (blood only) 34.3 % (37.0-47.0); Immature Granulocytes # (auto) 0.02 K/uL (0.01-0.20); Immature Granulocytes % (auto) 0.4 %; Lymphocytes # (auto) 1.68 K/uL (1.20-3.40); Lymphocytes % (auto) 32.6 %; Mean Corpuscular Hemoglobin 31.3 pg (25.0-34.0); Mean Corpuscular Volume 89.6 fL (80.0-100.0); Mean Platelet Volume 9.8 fL (9.4-12.4); Monocytes # (auto) 0.45 K/uL (0.11-0.59); Monocytes % (auto) 8.7 %; Neutrophils # (auto) 2.86 K/uL (1.40-6.50); Neutrophils % (auto) 55.6 %; Platelet Count 232 K/uL (130-400); RDW Coefficient of Variation 12.1 % (11.5-14.5); RDW Standard Deviation 39.8 fL (36.4-46.3); Red Blood Count 3.83 M/uL (4.20-5.40); White Blood Count 5.15 K/ul (4.8-10.8)
[2024-04-10 07:41] LABS: Albumin Globulin Ratio 1.3 (0.9-2); Albumin Level 3.5 gm/dl (3.4-5.0); Bilirubin,Total 0.5 mg/dl (0.2-1.0); Calcium 8.5 mg/dl (8.6-10.3); Creatinine Clr Calc Pharmacy 106.2 ml/min; Globulin 2.7 gm/dl (2.5-4.0); Magnesium 1.9 mg/dl (1.7-2.4); Total Protein 6.2 gm/dl (6.0-8.3)
[2024-04-10 07:54] VITALS: RESP 16; TEMP 98.2; O2SAT 98
[2024-04-10] MEDS: KETOROLAC 30 MG/ML VIAL IV PRN (08:30)
[2024-04-10 10:49] VITALS: BP 114/78; PULSE 70
--- NOTE | 2024-04-10 12:10 | Discharge Summary ---
Date of Service April 10, 2024 Admission HPI Per Admitting Provider The patient is a 43-year-old female iron deficiency, fatty liver, GERD, history of SLE factor V Leiden mutation and hemiplegic migraine. She underwent a cholecystectomy of 04/07, and after appropriate interval during the PACU, was discharged to home. Afterwards, she noted symptoms as above, presented to the ED for assessment. In addition, she reports that she has had some off balance issues which have since resolved, and she also reports that she did lose part of the day which does not remember events that took place. Admission Exam Per Admitting Provider The patient is awake, alert and oriented 3, well developed and well nourished, normocephalic and atraumatic, lying in bed and in no acute distress. HEENT--PERRL, EOMI, mucous membranes and oropharynx mildly dry. Neck--supple. No JVD. No bruits. Thyroid normal, trachea midline, no adenopathy. Heart--normal S1 and S2. No murmurs, rubs or gallops. Lungs--clear bilaterally, no respiratory distress, no accessory muscle use. Abdomen--normal bowel sounds and soft. Nontender. Nondistended, no hernias or masses, no organomegaly. Extremities--no cyanosis or clubbing. No edema. There are good distal pulses b/l. Dermatologic--normal skin turgor, normal color, no abnormal lymph nodes, no rash. Neurologic--cranial nerves II through XII grossly intact. Rheumatologic--normal range of motion. Psychiatric--normal affect. Principal Diagnosis Mild complications from postoperative cholecystectomy Postoperative pain Confusion, amnesia, hallucinations due to side effects of general anesthesia. Resolved Discharge Exam General: Awake, conversant Heart: S1, S2/regular rate and rhythm, no murmur rubs or gallops Lungs: Clear to auscultation bilaterally. Normal effort Abdomen: Soft/nondistended. Mild tenderness to palpation without rebound, rigidity or guarding. No hepatosplenomegaly Extremities: No clubbing/cyanosis. No edema Behavior: Appropriate, cooperative Discharge Data Allergies Allergy/AdvReac Type Severity Reaction Status Date / Time Penicillins Allergy Severe SHORTNESS Verified 04/07/24 07:04 OF BREATH Sulfa (Sulfonamide Allergy Severe ANAPHYLACTIC Verified 04/07/24 07:04 Antibiotics) REACTION morphine Allergy Intermediate RASH, PT Verified 04/07/24 07:04 HAS TAKEN DILAUDID IN PAST WITH NO RXN sulfamethoxazole Allergy Mild Rash Verified 04/07/24 07:04 [From Bactrim] trimethoprim [From Bactrim] Allergy Mild Rash Verified 04/07/24 07:04 hydroxychloroquine AdvReac Severe CHANGE IN Verified 04/07/24 07:04 [From Plaquenil] MENTAL STATUS, NEURO COMPLICATIONS DETERGENTS Allergy Unknown TIDE Uncoded 04/07/24 07:04 Consultations 04/08/24 00:39 ED Decision to Admit Stat Ordered Studies 04/07/24 22:27 CT abd pelvis IV con only Stat CT angio head w con Stat CT angio neck with con Stat CT head/brain wo con Stat Hospital Course (1) Postoperative abdominal pain: (2) Acute confusion: (3) Vertigo: (4) Right arm weakness: (5) Acute cholecystitis due to biliary calculus: (6) RUQ pain: (7) GERD (gastroesophageal reflux disease): (8) History of systemic lupus erythematosus: Plan Postoperative cholecystectomy complications- Patient presented to the emergency department with symptoms of confusion, amnesia for the days events, abdominal pain right upper quadrant extending to right shoulder and heaviness in her right leg and arm Some of her symptoms are most likely due to anesthesia CT scan abdomen pelvis notes that she is status postcholecystectomy, and that there is subcutaneous emphysema and possible ileus AST, ALT have trended down Patient did have CT scan, CTA head and neck, all of which were negative Treat pain with ibuprofen and Toradol IV fluids discontinued Patient is encouraged to drink p.o. fluids Advance diet as tolerated Meclizine for vertigo/dizziness Incentive spirometer Encourage ambulation Patient is remarkably improved today and wishes to go home. Total Time Total Time Spent Total Time Spent (In Minutes): 35 Discharge Plan Discharge Items Patient Disposition: Home - Self-Care Reason For Visit: CONFUSION, WEAKNESS, ABDOMINAL PAIN Discharge Diagnosis: Mild complications from postoperative cholecystectomy Postoperative pain Confusion, amnesia, hallucinations due to side effects of general anesthesia. Resolved Activity: Resume your previous activity Non-emergency contact: Primary Care Provider Call non-emergency contact if: you have any medication questions and your symptoms worsen Follow-up/Referrals: Jayleen Levine DO [Primary Care Provider] - Lundberg-Ok,Kennita L., DO [Physician] - Diet: Regular Addtl Attending Provider Instructions: Advised to follow-up with PCP in 1 week Advised to follow postsurgery discharge instructions Pending Studies at Discharge: No Stand-Alone Forms: My [facility] [employer] Medications and DC Order Prescriptions: Continued metronidazole 500 mg tablet 500 mg PO BID 7 Days Qty: 14 0RF Magnesium glycinate, zinc, Vitamin D 2 tab PO DAILY epinephrine [EpiPen 2-Connor] 0.3 mg/0.3 mL auto-injector 0.3 mg IM UD PRN (Reason: allergic reaction,severe) Qty: 2 0RF Glutathione Inejction 1 dose INJ WK Patient Comments: with vitamin i61--zcegf on Essential Fatty Acid 1 tab PO DAILY clopidogrel [Plavix] 75 mg tablet 75 mg PO Q OTHER DAY Hold Instructions: Resume on 04/09/24. pantoprazole [Protonix] [address] for susp in packet 40 mg PO DAILY PRN (Reason: Acid Reflux) Patient Comments: per pt on 04/04/24 she states has only used medication 2x cyanocobalamin (vitamin B-12) 1,000 mcg/mL Solution 1,000 mcg SUBCUT WK ibuprofen 200 mg Tablet 600 mg PO Q6H PRN (Reason: Pain) ondansetron 4 mg Tablet,Disintegrating 4 mg PO Q6H PRN (Reason: Nausea) oxycodone 5 mg tablet 5 - 10 mg PO .[id number] PRN (Reason: pain, for initial therapy, max 6 tabs per day) Qty: 15 0RF Discharge Orders: Discharge Order (Routine); Ordered 04/10/24 Ordered By: Josselin Ralph Admission Data Admit Date/Time: 04/08/24 01:49 Attending Provider: Josselin Ralph Admit Provider: Dalton Gupta Primary Care Provider: Jayleen Levine Other Providers: Dalton Gupta Other Interventions: Discharge Summary Assessment (RN) Last Done: 04/10/24 10:42
== END 2024-04-10 11:11 | disposition home or self-care (01) ==
LOC: 2N 22:02 → ED 22:02 → SUATTDRO 04-08 01:49 → 2N 04-08 02:17